=== PATIENT | female | born 1960 | race Caucasian/White ===

== ENCOUNTER 2023-10-01 16:10 | Emergency (ER) | payer OTHER, SELFPAY ==
[2023-10-01 16:10] VITALS: BMI 28.7
[2023-10-01 16:14] VITALS: BP 158/95
[2023-10-01 16:32] LABS: % Basophils 0.5 % (0-2); % Eosinophils 0.6 % (0-6); % Immature Granulocytes 0.3 % (0-0.5); % Lymphocytes 14.5 % (20.5-51.1); % Monocytes 7.4 % (1.7-9.3); % Neutrophils 76.7 % (42.2-75.2); Absolute Basophils 0.1 10^3/uL (0-0.2); Absolute Eosinophils 0.1 10^3/uL (0-0.7); Absolute Lymphocytes 1.4 10^3/uL (1.2-3.4); Absolute Monocytes 0.7 10^3/uL (0.1-0.6); Absolute Neutrophils 7.3 10^3/uL (1.4-6.5); Hematocrit 42.2 % (37.0-47.0); Hemoglobin 14.9 g/dL (12.0-16.0); Mean Corp Hgb Conc. 35.3 g/dL (33.0-37.0); Mean Corpuscular Hgb 30.4 pg (27.0-31.0); Mean Corpuscular Volume 86.1 fL (81.0-99.0); Mean Platelet Volume 9.5 fL (7.4-10.4); Nucleated Red Blood Cells % 0 %; Platelet Count 373 10^3/uL (130-400); Red Cell Dist. Width 11.2 % (11.5-14.5); White Blood Cell Count 9.5 10^3/uL (4.8-10.8)
[2023-10-01 16:44] LABS: ALT (SGPT) 25 U/L (0-35); AST (SGOT) 26 U/L (14-36); Albumin 4.3 g/dl (3.5-5.0); Alkaline Phosphatase 97 U/L (38-126); Blood Urea Nitrogen 12 mg/dl (7-17); Calcium 9.5 mg/dl (8.4-10.2); Carbon Dioxide 24 mmol/L (22-30); Chloride 104 mmol/L (98-107); Glucose 110 mg/dl (70-99); Potassium 3.9 mmol/L (3.5-5.1); Sodium 138 mmol/L (135-145); Total Bilirubin 0.4 mg/dl (0.2-1.3); Total Protein 6.9 g/dl (6.3-8.2); eGFR > 60.00
--- NOTE | 2023-10-01 19:19 | ED.GENMED ---
History of Present Illness
General
Chief Complaint: Fatigue
Source: patient and records
Exam Limitations: none
Time Seen by Provider: 10/01/23 19:03
Nursing documentation reviewed up to this point in time: agreed with
Travel History
Have you had any contact with someone who has COVID-19?: Yes
Comment:
Do you have any symptoms of coronavirus? Fever > 100 degrees, chills, cough, shortness of breath, sore throat, loss of taste or smell, muscle aches, or headache?: Yes
Symptoms:: bodyaches
History of Present Illness
History of Present Illness:
Patient is a 62-year-old female who presents to the emergency department complaining of feeling feverish, head congestion with shortness of breath and feeling as though she cannot take a deep breath as well as being dehydrated with myalgias greatest
in the lower extremities and decreased appetite. Patient has not been taking much by mouth and therefore feels dehydrated. Patient denies coughing. Patient tested positive for COVID on September 21. Patient finished Paxlovid on the . Patient
then tested negative on the , and . However today the patient tested positive again. 1 to 2 days ago the patient began to have symptoms again. Patient has been feeling well for 2 to 3 days before the relapse of symptoms.
Past History
Past History
ED Past Medical History: GERD, HTN, Psychiatric (Anxiety), Other (IBS) and Other (Extra-axial 1.7 cm Meningioma noted on CAT scan July 2016)
ED Past Surgical History: Tonsilectomy and Other (tubal ligation, uterine ablation; breast biopsy)
Social History
Tobacco: Non-smoker
Alcohol: Occasional
Drug: None
Personal:
Living: with family
Employment: Employed
Family History
Family History: Other (Noncontributory)
Review of Systems
Review of Systems
All Other Systems: ROS reviewed and negative except as documented in HPI and ROS
Constitutional: Reports fever, fatigue and chills
EENT: Reports runny nose
Respiratory: Reports trouble breathing; Denies cough
Cardiac: Reports no symptoms
ABD/GI: Reports nausea and anorexia; Denies abdominal pain, vomiting or diarrhea
: Reports no symptoms
Musculoskeletal: Reports muscle pain; Denies edema
Skin: Reports no symptoms
Neurological: Reports no symptoms
Hematologic/Lymphatic: Reports no symptoms
Phy Exam
Physical Exam
Physical Exam:
Physical Exam
General: moderate distress, alert and appropriate, well nourished, dry mucous membranes
HENT: Normocephalic, supple with no lymphadenopathy, no thyromegaly
Eyes: Clear sclera, conjuctiva without injection
Heart: Regular rhythm and rate. No S3, S4. No murmur. No NVD
Lungs: No respiratory distress, no stridor, lung sounds clear and equal bilaterally
Abdomen: Soft, nontender, no organomegaly, no CVA tenderness, BS good
Neuro: Alert and oriented x 3, CN II - XII intact, no motor focality, no cerebellar dysfunction
Skin: no rash
Psychiatric: well kept. interactive and cooperative
Extremities: No edema, cyanosis, tenderness, Good and equal peripheral pulses.
Course
Orders/Labs/Results
Orders:
Orders
10/01/23 16:24
Complete Blood Count/With Diff Urgent
Comprehensive Metabolic Panel Urgent
10/01/23 19:17
0.9% Sodium Chloride 1000 ml [Nss] 1,000 ml IV BOLUS
Acetaminophen [Tylenol] 1,000 mg PO NOW STA
Dexamethasone Sod Phosphate [Decadron] 10 mg IV NOW STA
HYDROmorphone [Dilaudid] 1 mg IV NOW STA
Ipratropium/Albuterol Sulfate [Duoneb] 3 ml INH R NOW STA
Ondansetron Injectable [Zofran] 4 mg IV NOW STA
10/01/23 20:35
Ondansetron Injectable [Zofran] 4 mg .ROUTE .STK-MED ONE
10/01/23 20:37
Ondansetron Injectable [Zofran] 4 mg IV NOW STA
10/01/23 21:11
Diphenhydramine [Benadryl] 12.5 mg IV NOW STA
Prochlorperazine [Compazine] 5 mg IV NOW STA
Abnormal Lab Results
10/01/23
16:24
RDW 11.2 L %
(11.5-14.5)
Absolute Neuts (auto) 7.3 H 10^3/uL
(1.4-6.5)
Absolute Monos (auto) 0.7 H 10^3/uL
(0.1-0.6)
Neutrophils % 76.7 H %
(42.2-75.2)
Lymphocytes % 14.5 L %
(20.5-51.1)
Glucose 110 H mg/dl
(70-99)
10/01/23 16:24
10/01/23 16:24
Vital Signs
Initial and Last Documented VS:
Initial Vital Signs
Temp Pulse Resp BP Pulse Ox
99.1 F 109 16 158/95 98
10/01/23 16:14 10/01/23 16:14 10/01/23 16:14 10/01/23 16:14 10/01/23 16:14
Last Documented Vital Signs
Temp Pulse Resp BP Pulse Ox
99.2 F 109 16 117/59 93
10/01/23 20:39 10/01/23 16:14 10/01/23 16:14 10/01/23 22:00 10/01/23 22:15
*Pulse Oximetry
Patient hypoxic: no
*Critical Care Note
Total Time (30-74mins, 75-104mins- exclusive of procedures): Not Applicable
Update Note
Update Note:
Patient feeling much better but did not tolerate the Dilaudid very well. Will discharge the patient on Zofran and prednisone. Patient has less myalgias and less weak. Appears to be recurrent COVID with dehydration.
ED Attending Note
-
Portions of this chart may have been created with voice recognition software.� Occasional wrong word or��sound alike� substitutions may have occurred due to the inherent limitations of voice recognition software.
Discharge Plan
Departure
Patient Disposition: Home (Routine Discharge)
Date of Disposition: 10/01/23
Time of Disposition: 22:45
Patient with high blood pressure during this ER visit?: No
Condition: Good
Covid-19: Not Applicable
Discharge Problem:
Recurrent COVID
Instructions: Dehydration, Adult (DC), COVID-19 (DC), Long COVID
Prescriptions:
New
prednisone 20 mg tablet
20 mg PO BID Qty: 10 0RF
ondansetron 8 mg tablet,disintegrating
8 mg PO TID PRN (Reason: nausea and vomiting) Qty: 20 0RF
No Action
lorazepam 0.5 MG tablet
0.5 mg PO Q6HPRN PRN (Reason: anxiety) Qty: 12 0RF
ascorbic acid (vitamin C) 1,000 mg Tablet
1,000 mg PO DAILY
rabeprazole [AcipHex] 20 mg Tablet,Delayed Release (Dr/Ec)
20 mg PO DAILY
losartan 25 mg Tablet
25 mg PO DAILY
metoprolol succinate 25 mg Tablet Extended Release 24 Hr
25 mg PO DAILY
Women's Multivitamin
1 tab PO DAILY
alprazolam [Xanax] 0.25 mg tablet
0.25 mg PO TID PRN (Reason: anxiety) Qty: 7 0RF
prednisone 50 mg Tablet
50 mg PO DAILY Qty: 4 0RF
ketorolac 10 mg tablet
10 mg PO Q8H Qty: 10 0RF
Referrals:
Gi,Kenna, PA-C [Family Provider] - Follow up in 5-7 days
Activity Restrictions/Additional Instructions:
Make sure to drink plenty of fluids. You may use acetaminophen 650 mg to 1000 mg every 6 hours for discomfort and fever
Interventions
Interventions:
*Risk Screen - Suicide Last Done: 10/01/23 22:21
*General Assessment Last Done: 10/01/23 22:21
ED- Fall Risk Assessment Last Done: 10/01/23 22:21
*ED COVID-19 Vaccine History Last Done: 10/01/23 16:14
[2023-10-01 19:44] VITALS: BP 151/91
[2023-10-01] MEDS: TYLENOL 1000 MG PO (19:52)
[2023-10-01] MEDS: DILAUDID 1 MG IV (19:52)
[2023-10-01] MEDS: DECADRON 10 MG IV (19:52)
[2023-10-01] MEDS: ZOFRAN 4 MG IV ×2 (19:53→20:37)
[2023-10-01] MEDS: NSS 1000 IV (19:53)
[2023-10-01] MEDS: DUONEB 3 ML INH (19:53)
[2023-10-01 20:00] VITALS: BP 140/80
[2023-10-01 21:00] VITALS: BP 130/86
[2023-10-01] MEDS: BENADRYL 12.5 MG IV (21:19)
[2023-10-01] MEDS: COMPAZINE 5 MG IV (21:20)
[2023-10-01 22:00] VITALS: BP 117/59
== END 2023-10-01 22:58 | disposition home or self-care (01) ==
LOC: EMR 16:10
PROVIDERS: Emergency Medicine; EMERGENCY PHYSICIAN Emergency Medicine; FAMILY PHYSICIAN Physician Assistant Medical
DX: U07.1 COVID-19 (principal)
CPT/HCPCS: 99284; 96374; 96375 ×4; 96361; 94640; 96376; 80053; 85025

== ENCOUNTER 2023-10-05 14:02 | Emergency (ER) | payer OTHER, SELFPAY ==
[2023-10-05 14:26] VITALS: BP 156/90
[2023-10-05 15:11] LABS: % Basophils 0.6 % (0-2); % Eosinophils 0.8 % (0-6); % Immature Granulocytes 0.6 % (0-0.5); % Monocytes 9.9 % (1.7-9.3); % Neutrophils 48.1 % (42.2-75.2); Absolute Eosinophils 0.1 10^3/uL (0-0.7); Absolute Lymphocytes 2.9 10^3/uL (1.2-3.4); Absolute Monocytes 0.7 10^3/uL (0.1-0.6); Absolute Neutrophils 3.5 10^3/uL (1.4-6.5); Hematocrit 40.9 % (37.0-47.0); Hemoglobin 14.4 g/dL (12.0-16.0); Mean Corp Hgb Conc. 35.2 g/dL (33.0-37.0); Mean Corpuscular Hgb 29.4 pg (27.0-31.0); Mean Corpuscular Volume 83.6 fL (81.0-99.0); Mean Platelet Volume 10.1 fL (7.4-10.4); Nucleated Red Blood Cells % 0 %; Platelet Count 314 10^3/uL (130-400); Red Blood Cell Count 4.89 10^6/uL (4.20-5.40); Red Cell Dist. Width 11.6 % (11.5-14.5); White Blood Cell Count 7.2 10^3/uL (4.8-10.8)
[2023-10-05 15:24] LABS: ALT (SGPT) 23 U/L (0-35); AST (SGOT) 27 U/L (14-36); Albumin 4.2 g/dl (3.5-5.0); Alkaline Phosphatase 82 U/L (38-126); Blood Urea Nitrogen 17 mg/dl (7-17); Calcium 9.8 mg/dl (8.4-10.2); Carbon Dioxide 25 mmol/L (22-30); Chloride 104 mmol/L (98-107); Glucose 99 mg/dl (70-99); Sodium 139 mmol/L (135-145); Total Bilirubin 0.5 mg/dl (0.2-1.3); Total Protein 6.9 g/dl (6.3-8.2); eGFR > 60.00
[2023-10-05 15:26] LABS: Troponin I < 0.012 ng/ml
--- NOTE | 2023-10-05 15:39 | ED.GENMED ---
History of Present Illness
General
Chief Complaint: Chest Pain
Source: patient
Exam Limitations: none
Time Seen by Provider: 10/05/23 15:39
Travel History
Have you had any contact with someone who has COVID-19?: Yes
Comment: self
Do you have any symptoms of coronavirus? Fever > 100 degrees, chills, cough, shortness of breath, sore throat, loss of taste or smell, muscle aches, or headache?: Yes
Symptoms:: cough
History of Present Illness
History of Present Illness:
60-year-old female diagnosed with COVID September 21 was on Paxlovid with relatively minimal symptoms. However symptoms progressed 3 to 4 days after stopping Paxlovid. Most of the symptoms have improved since then however this morning at about 530 she
developed a chest tightness with some shortness of breath at 5:30 in the morning. The symptoms have been persistent since that time. No exertional component. No new cough hemoptysis fever etc.
Past History
Past History
ED Past Medical History: GERD, HTN, Psychiatric (Anxiety), Other (IBS) and Other (Extra-axial 1.7 cm Meningioma noted on CAT scan July 2016)
ED Past Surgical History: Tonsilectomy and Other (tubal ligation, uterine ablation; breast biopsy)
Social History
Tobacco: Non-smoker
Alcohol: Occasional
Drug: None
Personal:
Living: with family
Employment: Employed
Family History
Family History: Other (Noncontributory)
Review of Systems
Review of Systems
All Other Systems: Not applicable
Respiratory: Reports cough; Denies hemoptysis
Cardiac: Denies syncope
Phy Exam
Physical Exam
Physical Exam:
GENERAL: Alert and oriented in no apparent distress
EYE: Orbits normal.
NECK: Supple
CARDIAC: Regular rate and rhythm without any obvious murmurs.
LUNGS: Clear breath sounds,normal
ABDOMEN: Soft, without focal tenderness or distention
NEUROLOGICAL: Alert and oriented , grossly non-focal
SKIN: Warm and dry, no rash or lesion, no discoloration, skin intact.
MUSCULOSKELETAL: No edema,no deformity.Good color
PSYCH: Normal and appropriate interaction.
Scores
Heart Score for Chest Pain Patients
STEMI patient?: Not applicable
Course
Orders/Labs/Results
Orders:
Orders
10/05/23 14:32
EKG [Electrocardiogram (*1)] Urgent
Reason for Study: Chest Pain
10/05/23 14:33
EKG- Treatment ONCE
10/05/23 14:49
CMP [Comprehensive Metabolic Panel] Urgent
Complete Blood Count/With Diff Urgent
Troponin I Urgent
10/05/23 15:49
CT Chest Pe Study Urgent
Comment:
Reason For Exam: The chest pain COVID-positive short of breath eugene
10/05/23 16:11
0.9% Sodium Chloride 500 ml [Nss] 500 ml IV BOLUS
Abnormal Lab Results
10/05/23
14:49
Absolute Monos (auto) 0.7 H 10^3/uL
(0.1-0.6)
Immature Gran % 0.6 H %
(0-0.5)
Monocytes % 9.9 H %
(1.7-9.3)
10/05/23 14:49
10/05/23 14:49
Vital Signs
Initial and Last Documented VS:
Initial Vital Signs
Temp Pulse Resp BP Pulse Ox
99.0 F 89 18 156/90 98
10/05/23 14:26 10/05/23 14:26 10/05/23 14:26 10/05/23 14:26 10/05/23 14:26
Last Documented Vital Signs
Temp Pulse Resp BP Pulse Ox
99.0 F 89 18 143/67 98
10/05/23 14:26 10/05/23 16:00 10/05/23 16:00 10/05/23 16:00 10/05/23 16:00
MDM/Problems Addressed
Differential Diagnosis Includes:
Continuous nonexertional symptoms for about 10 hours. EKG and troponin perfectly normal. No indication for repeat cardiac testing. However with delayed shortness of breath and chest tightness CT scan will be done to rule out pulmonary emboli.
Clinically nontoxic and stable
*Radiology
Radiology exam reviewed: radiology read reviewed (neg)
*Pulse Oximetry
Patient hypoxic: no
*EKG
Interpreted by ED Provider?: Yes
Interpretation: normal
Comparison EKG: no changes
Heart Rate: 84
Rate: normal
Rhythm: sinus
[place]: normal axis
Interval: normal interval
QRS Pattern: normal QRS
Ischemia: no ischemia
*Critical Care Note
Total Time (30-74mins, 75-104mins- exclusive of procedures): Not Applicable
Update Note
Update Note:
Patient medically stable. Prolonged symptoms about 10 hours continuous with normal EKG and troponin. No PE. No pneumonia. Discharged to follow-up
ED Attending Note
-
Portions of this chart may have been created with voice recognition software.� Occasional wrong word or��sound alike� substitutions may have occurred due to the inherent limitations of voice recognition software.
Discharge Plan
Departure
Patient Disposition: Home (Routine Discharge)
Date of Disposition: 10/05/23
Time of Disposition: 18:02
Patient with high blood pressure during this ER visit?: Yes
Discharge Problem:
Anterior chest pain, COVID infection
Instructions: Chest Pain (DC), COVID-19 (DC), BLOOD PRESSURE
Prescriptions:
No Action
lorazepam 0.5 MG tablet
0.5 mg PO Q6HPRN PRN (Reason: anxiety) Qty: 12 0RF
ascorbic acid (vitamin C) 1,000 mg Tablet
1,000 mg PO DAILY
rabeprazole [AcipHex] 20 mg Tablet,Delayed Release (Dr/Ec)
20 mg PO DAILY
losartan 25 mg Tablet
25 mg PO DAILY
metoprolol succinate 25 mg Tablet Extended Release 24 Hr
25 mg PO DAILY
Women's Multivitamin
1 tab PO DAILY
alprazolam [Xanax] 0.25 mg tablet
0.25 mg PO TID PRN (Reason: anxiety) Qty: 7 0RF
prednisone 50 mg Tablet
50 mg PO DAILY Qty: 4 0RF
ketorolac 10 mg tablet
10 mg PO Q8H Qty: 10 0RF
prednisone 20 mg tablet
20 mg PO BID Qty: 10 0RF
ondansetron 8 mg tablet,disintegrating
8 mg PO TID PRN (Reason: nausea and vomiting) Qty: 20 0RF
Referrals:
UNKNOWN - PT DOES,NOT KNOW [Unknown Provider] - Follow up in 2-3 days
Interventions
Interventions:
*Risk Screen - Suicide Last Done: 10/05/23 14:26
*General Assessment Last Done: 10/05/23 15:51
*Neglect/Abuse Screening Last Done: 10/05/23 14:26
ED- Fall Risk Assessment Last Done: 10/05/23 15:51
*ED COVID-19 Vaccine History Last Done: 10/05/23 14:26
ED- Cardiac Assessment Last Done: 10/05/23 15:51
[2023-10-05 15:49] VITALS: BP 141/70
[2023-10-05 15:51] VITALS: BMI 30.4
[2023-10-05 16:00] VITALS: BP 143/67
[2023-10-05] MEDS: NSS 500 IV (16:11)
== END 2023-10-05 18:15 | disposition home or self-care (01) ==
LOC: EMR 14:02
PROVIDERS: Emergency Medicine; EMERGENCY PHYSICIAN Emergency Medicine; FAMILY PHYSICIAN Physician Assistant Medical
DX: R07.89 Other chest pain (principal); U07.1 COVID-19; I10 Essential (primary) hypertension
CPT/HCPCS: 99285; 96360; 71275; 80053; 84484; 85025; 93005; Q9967

== ENCOUNTER → 2023-10-17 06:46 | Outpatient (REF) | payer OTHER, SELFPAY | LOC: WDC 06:46 | PROVIDERS: ATTENDING PHYSICIAN Physician Assistant Medical | DX: Z12.31 Encounter for screening mammogram for malignant neoplasm of breast (principal) | CPT/HCPCS: 77063; 77067 ==

== ENCOUNTER → 2023-10-31 07:03 | Outpatient (REF) | payer OTHER, SELFPAY ==
[2023-10-31 07:46] LABS: % Basophils 0.5 % (0-2); % Eosinophils 1.3 % (0-6); % Immature Granulocytes 0.5 % (0-0.5); % Lymphocytes 21.2 % (20.5-51.1); % Monocytes 6.9 % (1.7-9.3); % Neutrophils 69.6 % (42.2-75.2); Absolute Eosinophils 0.1 10^3/uL (0-0.7); Absolute Lymphocytes 1.6 10^3/uL (1.2-3.4); Absolute Monocytes 0.5 10^3/uL (0.1-0.6); Absolute Neutrophils 5.2 10^3/uL (1.4-6.5); Hematocrit 40.8 % (37.0-47.0); Mean Corp Hgb Conc. 34.3 g/dL (33.0-37.0); Mean Corpuscular Hgb 29.4 pg (27.0-31.0); Mean Corpuscular Volume 85.5 fL (81.0-99.0); Mean Platelet Volume 10.4 fL (7.4-10.4); Nucleated Red Blood Cells % 0 %; Platelet Count 252 10^3/uL (130-400); Red Blood Cell Count 4.77 10^6/uL (4.20-5.40); Red Cell Dist. Width 11.9 % (11.5-14.5); White Blood Cell Count 7.4 10^3/uL (4.8-10.8)
[2023-10-31 08:04] LABS: ALT (SGPT) 38 U/L (0-35); AST (SGOT) 32 U/L (14-36); Albumin 4.3 g/dl (3.5-5.0); Alkaline Phosphatase 108 U/L (38-126); Direct Bilirubin 0.3 mg/dl (0.0-0.4); Total Bilirubin 0.7 mg/dl (0.2-1.3)
== END ==
LOC: RAD 07:03
PROVIDERS: ATTENDING PHYSICIAN Internal Medicine Gastroenterology; FAMILY PHYSICIAN Physician Assistant Medical
DX: R10.11 Right upper quadrant pain (principal); K76.0 Fatty (change of) liver, not elsewhere classified
CPT/HCPCS: 36415; 76700; 80076; 85025

== ENCOUNTER → 2023-12-07 07:25 | Outpatient (REF) | payer OTHER, SELFPAY | LOC: MRI 3T 07:25 | PROVIDERS: ATTENDING PHYSICIAN Internal Medicine Gastroenterology; FAMILY PHYSICIAN Physician Assistant Medical | DX: K83.8 Other specified diseases of biliary tract (principal) | CPT/HCPCS: 74183; A9575 ==

== ENCOUNTER 2024-01-05 07:19 | Emergency (ER) | payer OTHER, SELFPAY ==
[2024-01-05 07:30] VITALS: BP 156/89
[2024-01-05 07:41] VITALS: BP 147/72
--- NOTE | 2024-01-05 07:56 | ED.GENMED ---
History of Present Illness
General
Chief Complaint: Chest Pain
Source: patient
Exam Limitations: none
Time Seen by Provider: 01/05/24 07:38
Nursing documentation reviewed up to this point in time: agreed with
Travel History
Have you had any contact with someone who has COVID-19?: No
Do you have any symptoms of coronavirus? Fever > 100 degrees, chills, cough, shortness of breath, sore throat, loss of taste or smell, muscle aches, or headache?: No
History of Present Illness
History of Present Illness:
Patient is a 63-year-old female with history of hypertension hyperlipidemia reflux anxiety' valve issues' presents to the ER for evaluation. Patient reports around 3:30 AM she noticed midsternal chest pressure. She is not sure if she was up for
the pain woke her up. She reports it is still there. She is unable to tell if this is her anxiety or reflux. She is followed by Dr. Johnson of Cardiology for 'valve disease .' She does have Ativan at home and does not want to take it. She
denies any radiation denies any nausea vomiting associated shortness of breath.
Stress echo reviewed from January 2023 shows normal LV size normal LV ejection fraction mild to moderate aortic regurgitation mild tricuspid regurg.
In review of records, pt was seen here in Jun 2023 and September 2023 for CP had neg ER work up.
Past History
Past History
ED Past Medical History: GERD, HTN, Psychiatric (Anxiety), Other (IBS) and Other (Extra-axial 1.7 cm Meningioma noted on CAT scan July 2016)
ED Past Surgical History: Tonsilectomy and Other (tubal ligation, uterine ablation; breast biopsy)
Social History
Tobacco: Non-smoker
Alcohol: Occasional
Drug: None
Personal:
Living: with family
Employment: Employed
Family History
Family History: Other (Noncontributory)
Review of Systems
Review of Systems
Allergies reviewed?: Yes
All Other Systems: ROS reviewed and negative except as documented in HPI and ROS
Constitutional: Reports no symptoms; Denies fever, fatigue or chills
Respiratory: Reports no symptoms
Cardiac: Reports chest pain
ABD/GI: Reports no symptoms; Denies nausea or vomiting
: Reports no symptoms
Musculoskeletal: Reports no symptoms
Skin: Reports no symptoms
Neurological: Reports no symptoms
Psychiatric: Reports no symptoms
Phy Exam
General Physical Exam
General Presentation: no apparent distress
General age: appears stated age
General Skin: warm and dry
General Habitus: normal
General Mental: alert
General Hydration: appears well hydrated
Cardiovascular Exam
Cardiovascular Exam: regular rate/rhythm, no murmur and normal peripheral pulses
Pulmonary Exam
Pulmonary Exam: lungs clear and no respiratory distress
Neurological Exam
Neurological Exam: alert and oriented x3
Musculoskeletal Exam
Musculoskeletal Exam: full ROM
Skin Exam
Skin Exam: normal color and warm/dry
Psychiatric Exam
Psychiatric Exam: normal mood/affect
Scores
Heart Score for Chest Pain Patients
STEMI patient?: Not applicable
Course
Orders/Labs/Results
Orders:
Orders
01/05/24 07:30
Electrocardiogram (*1) Urgent
Reason for Study: Chest Pain
EKG- Treatment ONCE
01/05/24 07:44
Cardiac Monitoring- Treatment ONCE
CR Chest - 2 Views Urgent
Comment:
Reason For Exam: cp
01/05/24 07:58
Complete Blood Count/With Diff Urgent
01/05/24 08:19
Soft Tissue, Neck [CR Soft Tissue Neck ] Urgent
Comment:
Reason For Exam: sob
01/05/24 08:45
Comprehensive Metabolic Panel Urgent
Troponin I Urgent
01/05/24 09:37
EKG- Treatment ONCE
01/05/24 11:45
Electrocardiogram (*1) Stat
Reason for Study: Other
Other Reason for Exam: chest pain
01/05/24 11:50
Troponin I Urgent
Abnormal Lab Results
01/05/24
08:45
Glucose 100 H mg/dl
(70-99)
Calcium 10.4 H mg/dl
(8.4-10.2)
AST 40 H U/L
(14-36)
ALT 57 H U/L
(0-35)
01/05/24 07:58
01/05/24 08:45
Vital Signs
Initial and Last Documented VS:
Initial Vital Signs
Temp Pulse Resp BP Pulse Ox
98.1 F 73 16 156/89 98
01/05/24 07:30 01/05/24 07:30 01/05/24 07:30 01/05/24 07:30 01/05/24 07:30
Last Documented Vital Signs
Temp Pulse Resp BP Pulse Ox
98.1 F 78 15 141/74 98
01/05/24 07:30 01/05/24 12:15 01/05/24 12:15 01/05/24 13:41 01/05/24 13:41
MDM/Problems Addressed
Differential Diagnosis Includes:
not limited to [place], CAD. Anxiety
MDM/Problems Addressed:
Patient is a 63-year-old female with hypertension hyperlipidemia followed by Dr. Johnson of cardiology presents with chest pressure. This occurred around 330 this morning. She felt that it was anxiety but did not want to take her Ativan in case
it was not. She presented to the awake alert no acute distress patient was monitored here 2 negative cardiac troponins with neg chest x-ray no acute findings on EKG. Stable for discharge with outpatient follow-up cardiology
*Pulse Oximetry
Patient hypoxic: no
*EKG
Interpreted by ED Provider?: Yes
Interpretation: normal
Heart Rate: 68
Rhythm: sinus
Ischemia: no ischemia
*Critical Care Note
Total Time (30-74mins, 75-104mins- exclusive of procedures): Not Applicable
ED Attending Note
-
Portions of this chart may have been created with voice recognition software.� Occasional wrong word or��sound alike� substitutions may have occurred due to the inherent limitations of voice recognition software.
Discharge Plan
Departure
Patient Disposition: Home (Routine Discharge)
Date of Disposition: 01/05/24
Time of Disposition: 13:38
Patient with high blood pressure during this ER visit?: Yes
Condition: Fair
Covid-19: Not Applicable
Discharge Problem:
Chest pain
Instructions: Chest Pain DCA Follow Up
Prescriptions:
No Action
lorazepam 0.5 MG tablet
0.5 mg PO Q6HPRN PRN (Reason: anxiety) Qty: 12 0RF
ascorbic acid (vitamin C) 1,000 mg Tablet
1,000 mg PO DAILY
rabeprazole [AcipHex] 20 mg Tablet,Delayed Release (Dr/Ec)
20 mg PO DAILY
losartan 25 mg Tablet
25 mg PO DAILY
metoprolol succinate 25 mg Tablet Extended Release 24 Hr
25 mg PO DAILY
Women's Multivitamin
1 tab PO DAILY
alprazolam [Xanax] 0.25 mg tablet
0.25 mg PO TID PRN (Reason: anxiety) Qty: 7 0RF
prednisone 50 mg Tablet
50 mg PO DAILY Qty: 4 0RF
ketorolac 10 mg tablet
10 mg PO Q8H Qty: 10 0RF
prednisone 20 mg tablet
20 mg PO BID Qty: 10 0RF
ondansetron 8 mg tablet,disintegrating
8 mg PO TID PRN (Reason: nausea and vomiting) Qty: 20 0RF
Referrals:
Gi,Kenna, PA-C [Family Provider] -
Activity Restrictions/Additional Instructions:
Follow-up with cardiology as discussed return if any worsening of symptoms.
Interventions
Interventions:
*Risk Screen - Suicide Last Done: 01/05/24 08:48
*General Assessment Last Done: 01/05/24 08:48
*Neglect/Abuse Screening Last Done: 01/05/24 08:48
ED- Fall Risk Assessment Last Done: 01/05/24 08:48
*ED COVID-19 Vaccine History Last Done: 01/05/24 08:48
*Nursing Disposition Last Done: 01/05/24 13:41
ED- Cardiac Assessment Last Done: 01/05/24 08:14
Discharge Date and Time
Discharge Date/Time: 01/05/24 13:42
Print Language: MACANESE
[2024-01-05 08:09] LABS: % Basophils 0.5 % (0-2); % Eosinophils 1.5 % (0-6); % Immature Granulocytes 0.3 % (0-0.5); % Lymphocytes 22.3 % (20.5-51.1); % Neutrophils 68.4 % (42.2-75.2); Absolute Eosinophils 0.1 10^3/uL (0-0.7); Absolute Lymphocytes 1.7 10^3/uL (1.2-3.4); Absolute Monocytes 0.5 10^3/uL (0.1-0.6); Absolute Neutrophils 5.1 10^3/uL (1.4-6.5); Hemoglobin 14.3 g/dL (12.0-16.0); Mean Corp Hgb Conc. 34.9 g/dL (33.0-37.0); Mean Corpuscular Hgb 29.4 pg (27.0-31.0); Mean Corpuscular Volume 84.4 fL (81.0-99.0); Mean Platelet Volume 10.2 fL (7.4-10.4); Nucleated Red Blood Cells % 0 %; Platelet Count 286 10^3/uL (130-400); Red Blood Cell Count 4.86 10^6/uL (4.20-5.40); Red Cell Dist. Width 11.9 % (11.5-14.5); White Blood Cell Count 7.4 10^3/uL (4.8-10.8)
[2024-01-05 09:09] LABS: ALT (SGPT) 57 U/L (0-35); AST (SGOT) 40 U/L (14-36); Albumin 4.4 g/dl (3.5-5.0); Alkaline Phosphatase 121 U/L (38-126); Blood Urea Nitrogen 16 mg/dl (7-17); Calcium 10.4 mg/dl (8.4-10.2); Carbon Dioxide 25 mmol/L (22-30); Chloride 107 mmol/L (98-107); Glucose 100 mg/dl (70-99); Potassium 4.5 mmol/L (3.5-5.1); Sodium 141 mmol/L (135-145); Total Bilirubin 0.8 mg/dl (0.2-1.3); eGFR > 60.00
[2024-01-05 09:21] LABS: Troponin I < 0.012 ng/ml
[2024-01-05 10:00] VITALS: BP 149/81
[2024-01-05 11:00] VITALS: BP 140/65
[2024-01-05 12:26] LABS: Troponin I < 0.012 ng/ml
[2024-01-05 13:41] VITALS: BP 141/74
== END 2024-01-05 13:42 | disposition home or self-care (01) ==
LOC: EMR 07:19
PROVIDERS: Nurse Practitioner; EMERGENCY PHYSICIAN Emergency Medicine; FAMILY PHYSICIAN Physician Assistant Medical
DX: R07.89 Other chest pain (principal); I10 Essential (primary) hypertension; E78.00 Pure hypercholesterolemia, unspecified; F41.9 Anxiety disorder, unspecified; K58.9 Irritable bowel syndrome, unspecified
CPT/HCPCS: 99283; 70360; 71046; 80053; 84484; 85025; 93005

== ENCOUNTER 2024-01-18 05:52 | Emergency (ER) | payer OTHER, SELFPAY ==
[2024-01-18 05:56] VITALS: BP 160/89
[2024-01-18 06:35] VITALS: BP 151/75
[2024-01-18 06:40] VITALS: BMI 30.8
--- NOTE | 2024-01-18 06:41 | ED.GENMED ---
History of Present Illness
General
Chief Complaint: Abdominal Pain
Source: patient
Exam Limitations: none
Time Seen by Provider: 01/18/24 06:22
History of Present Illness
History of Present Illness:
See MDM
Past History
Past History
ED Past Medical History: GERD, HTN, Psychiatric (Anxiety), Other (IBS) and Other (Extra-axial 1.7 cm Meningioma noted on CAT scan July 2016)
ED Past Surgical History: Tonsilectomy and Other (tubal ligation, uterine ablation; breast biopsy)
Social History
Tobacco: Non-smoker
Alcohol: Occasional
Drug: None
Personal:
Living: with family
Employment: Employed
Family History
Family History: Other (Noncontributory)
Phy Exam
Physical Exam
Physical Exam:
See MDM
Course
Orders/Labs/Results
Orders:
Orders
01/18/24 06:01
IV Insert/Care/Rem.- Treatment PRN
01/18/24 06:02
Electrocardiogram (*1) Urgent
Reason for Study: Abdominal Pain
EKG- Treatment ONCE
01/18/24 06:32
Complete Blood Count/With Diff Urgent
Comprehensive Metabolic Panel Urgent
Lipase Urgent
01/18/24 06:39
0.9% Sodium Chloride 1000 ml [Nss] 1,000 ml IV BOLUS
Ondansetron Injectable [Zofran] 4 mg IV NOW STA
Abnormal Lab Results
01/18/24
06:32
Chloride 109 H mmol/L
(98-107)
Glucose 105 H mg/dl
(70-99)
Calcium 10.3 H mg/dl
(8.4-10.2)
01/18/24 06:32
01/18/24 06:32
Vital Signs
Initial and Last Documented VS:
Initial Vital Signs
Temp Pulse Resp BP Pulse Ox
98.6 F 80 18 160/89 99
01/18/24 05:56 01/18/24 05:56 01/18/24 05:56 01/18/24 05:56 01/18/24 05:56
Last Documented Vital Signs
Temp Pulse Resp BP Pulse Ox
98.6 F 80 18 140/70 99
01/18/24 05:56 01/18/24 05:56 01/18/24 05:56 01/18/24 07:00 01/18/24 07:55
MDM/Problems Addressed
Differential Diagnosis Includes:
HPI and MDM Narrative:
63-year-old female presenting with abdominal discomfort and vomiting. Patient developed nausea and vomiting of the past few hours. This occurred several times. On her last time, it was blood tinged. She has an underlying diagnosis of anxiety and
reflux. She is on omeprazole. She took her omeprazole and Tums with minimal relief. Patient does acknowledge that she has been stressed and anxious recently.
On exam, she is well-appearing nontoxic. We discussed likely Anh-Anand tear. Given the mild epigastric discomfort, will obtain basic blood work and lipase. Screening EKG negative.
Physical exam
General: Well appearing and non-toxic
HEENT: protecting airway
Neck: appears supple
CV: No evidence of cyanosis
Resp: No accessory muscle use
Abd: Non-distended. Mild epigastric discomfort. No right upper quadrant tenderness
Extremities: No deformities
Neuro: alert
Psych: Normal affect
Skin: Intact
Problems Addressed including Acute and Chronic Conditions affecting care:
1. Blood-tinged vomit
Acuity: acute
Prognosis: stable
Details: Likely in the setting of Anh-Anand tear. Will obtain basic blood work. Patient is already on PPI
Updates
Patient feeling better on reassessment after IV fluids and Zofran. She feels comfortable going home
Differential Diagnosis (but not limited to): Peptic ulcer disease, reflux, anxiety, Anh-Anand tear
Testing considered: CT abdomen/pelvis but no significant tenderness appreciated
Drug therapy (if applicable): OTC meds, please see d/c instruction regarding Rx drugs
Amount and/or Complexity of Data Reviewed
Clinical info obtained from: Patient
External data reviewed: N/A
Labs I independently reviewed (but not limited to): Hgb normal
Radiology: N/A
Pulse Ox: not hypoxic
EKG independently reviewed: Sinus rhythm, normal axis, no STEMI
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
Critical Care: N/A
Risk of Complication:
Social Determinants of health: Good social support
Discussed with other providers: N/A
Escalation of Care includes Admit/Obs: After being observed in the Emergency Department, pt stable for discharge.
Occasional wrong word or 'sound a like' substitutions may have occurred due to the inherent limitations of voice recognition software. Read the chart carefully and recognize, using context, where substitutions have occurred.
*Critical Care Note
Total Time (30-74mins, 75-104mins- exclusive of procedures): Not Applicable
ED Attending Note
-
Portions of this chart may have been created with voice recognition software.� Occasional wrong word or��sound alike� substitutions may have occurred due to the inherent limitations of voice recognition software.
Discharge Plan
Departure
Patient Disposition: Home (Routine Discharge)
Date of Disposition: 01/18/24
Time of Disposition: 08:57
Patient with high blood pressure during this ER visit?: Yes
Discharge Problem:
Acid reflux
Instructions: BLOOD PRESSURE
Prescriptions:
New
ondansetron 4 mg Tablet,Disintegrating
4 mg PO BIDPRN PRN (Reason: nausea/vomiting) Qty: 10 0RF
No Action
lorazepam 0.5 MG tablet
0.5 mg PO Q6HPRN PRN (Reason: anxiety) Qty: 12 0RF
ascorbic acid (vitamin C) 1,000 mg Tablet
1,000 mg PO DAILY
rabeprazole [AcipHex] 20 mg Tablet,Delayed Release (Dr/Ec)
20 mg PO DAILY
losartan 25 mg Tablet
25 mg PO DAILY
metoprolol succinate 25 mg Tablet Extended Release 24 Hr
25 mg PO DAILY
Women's Multivitamin
1 tab PO DAILY
alprazolam [Xanax] 0.25 mg tablet
0.25 mg PO TID PRN (Reason: anxiety) Qty: 7 0RF
prednisone 50 mg Tablet
50 mg PO DAILY Qty: 4 0RF
ketorolac 10 mg tablet
10 mg PO Q8H Qty: 10 0RF
prednisone 20 mg tablet
20 mg PO BID Qty: 10 0RF
ondansetron 8 mg tablet,disintegrating
8 mg PO TID PRN (Reason: nausea and vomiting) Qty: 20 0RF
Referrals:
Kenna Angelo PA-C [Family Provider] -
Activity Restrictions/Additional Instructions:
Please return for any worsening symptoms.
You may return at any time if you have further concerns.
Please follow up with your doctor at the first available appointment, preferably this week.
Thank you for choosing [facility].
Interventions
Interventions:
*Risk Screen - Suicide Last Done: 01/18/24 06:42
*General Assessment Last Done: 01/18/24 06:42
*Neglect/Abuse Screening Last Done: 01/18/24 06:42
ED- Fall Risk Assessment Last Done: 01/18/24 06:42
*ED COVID-19 Vaccine History Last Done: 01/18/24 06:42
AI-Hfozcw-Mfigpfwdfx Assessment Last Done: 01/18/24 06:41
Discharge Date and Time
Print Language: KYRGYZ
[2024-01-18] MEDS: ZOFRAN 4 MG IV (06:50)
[2024-01-18] MEDS: NSS 1000 IV (06:51)
[2024-01-18 06:53] LABS: ALT (SGPT) 33 U/L (0-35); AST (SGOT) 33 U/L (14-36); Albumin 4.9 g/dl (3.5-5.0); Alkaline Phosphatase 120 U/L (38-126); Blood Urea Nitrogen 16 mg/dl (7-17); Calcium 10.3 mg/dl (8.4-10.2); Carbon Dioxide 23 mmol/L (22-30); Chloride 109 mmol/L (98-107); Estimated Creatinine Clearance 95 ml/min; Glucose 105 mg/dl (70-99); Lipase 141 U/L (23-300); Potassium 4.3 mmol/L (3.5-5.1); Sodium 141 mmol/L (135-145); Total Bilirubin 0.9 mg/dl (0.2-1.3); Total Protein 7.7 g/dl (6.3-8.2); eGFR > 60.00
[2024-01-18 06:55] LABS: % Basophils 0.7 % (0-2); % Eosinophils 0.9 % (0-6); % Immature Granulocytes 0.5 % (0-0.5); % Lymphocytes 26.7 % (20.5-51.1); % Monocytes 6.9 % (1.7-9.3); % Neutrophils 64.3 % (42.2-75.2); Absolute Eosinophils 0.1 10^3/uL (0-0.7); Absolute Lymphocytes 1.5 10^3/uL (1.2-3.4); Absolute Monocytes 0.4 10^3/uL (0.1-0.6); Absolute Neutrophils 3.6 10^3/uL (1.4-6.5); Hematocrit 44.3 % (37.0-47.0); Hemoglobin 15.7 g/dL (12.0-16.0); Mean Corp Hgb Conc. 35.4 g/dL (33.0-37.0); Mean Corpuscular Hgb 30.3 pg (27.0-31.0); Mean Corpuscular Volume 85.4 fL (81.0-99.0); Mean Platelet Volume 10.3 fL (7.4-10.4); Nucleated Red Blood Cells % 0 %; Platelet Count 326 10^3/uL (130-400); Red Blood Cell Count 5.19 10^6/uL (4.20-5.40); White Blood Cell Count 5.7 10^3/uL (4.8-10.8)
[2024-01-18 07:00] VITALS: BP 140/70
[2024-01-18 08:00] VITALS: BP 149/78
== END 2024-01-18 09:38 | disposition home or self-care (01) ==
LOC: EMR 05:52
PROVIDERS: EMERGENCY PHYSICIAN Student in an Organized Health Care Education/Training Program; FAMILY PHYSICIAN Physician Assistant Medical
DX: R10.9 Unspecified abdominal pain (principal); K21.9 Gastro-esophageal reflux disease without esophagitis
CPT/HCPCS: 99283; 96374; 96361; 80053; 83690; 85025; 93005

== ENCOUNTER 2024-01-19 02:51 | Emergency (ER) | payer OTHER, SELFPAY ==
[2024-01-19 03:05] VITALS: BP 169/89
[2024-01-19 03:21] VITALS: BMI 31.4
[2024-01-19 03:23] VITALS: BP 129/76
[2024-01-19 04:00] VITALS: BP 127/70
--- NOTE | 2024-01-19 04:51 | ED.GENMED ---
History of Present Illness
<MELISSA Rand - Last Filed: 01/19/24 05:12>
General
Chief Complaint: Headache
Source: patient
Exam Limitations: none
Time Seen by Provider: 01/19/24 04:29
Nursing documentation reviewed up to this point in time: agreed with
History of Present Illness
History of Present Illness:
63 year old female presenting for evaluation of occipital MUNIZ. Pt awoke at 0230 this morning with dull, 4/10 pain in her R occipital area. She has a history of migraines for which she takes Tylenol PRN. Pt has not taken any medications for her
current sx. Pt also reports that her anxiety triggers an increase in frequency of headaches. She has been anxious over the last week due to an upcoming flight, and endorses more headaches than usual during this time. She denies N/V, photophobia,
vision problems, dizziness, weakness, dysarthria, and syncope.
Past History
<MELISSA Rand - Last Filed: 01/19/24 05:12>
Past History
ED Past Medical History: GERD, HTN, Psychiatric (Anxiety), Other (IBS) and Other (Extra-axial 1.7 cm Meningioma noted on CAT scan July 2016)
ED Past Surgical History: Tonsilectomy and Other (tubal ligation, uterine ablation; breast biopsy)
Social History
Tobacco: Non-smoker
Alcohol: Occasional
Drug: None
Personal:
Living: with family
Employment: Employed
Family History
Family History: Other (Noncontributory)
Review of Systems
<MELISSA Rand - Last Filed: 01/19/24 05:12>
Review of Systems
Allergies reviewed?: Yes
Constitutional: Reports no symptoms
EENT: Reports no symptoms
Respiratory: Reports no symptoms
Cardiac: Reports no symptoms
ABD/GI: Reports no symptoms
Musculoskeletal: Reports muscle pain
Skin: Reports no symptoms
Neurological: Reports headache
Psychiatric: Reports anxiety
Phy Exam
<MELISSA Rand - Last Filed: 01/19/24 05:12>
General Physical Exam
General Presentation: well appearing
General age: appears stated age
General Skin: warm
General Habitus: normal
General Mental: alert
General Hydration: appears well hydrated
ENT Exam
ENT Exam: EOMI and normocephalic
Eye Exam
Eye Exam: PERRL and EOMI
Cardiovascular Exam
Cardiovascular Exam: regular rate/rhythm, no edema and no murmur
Pulmonary Exam
Pulmonary Exam: lungs clear and no respiratory distress
Neurological Exam
Neurological Exam: alert, oriented x3, no motor deficits and speech normal
Musculoskeletal Exam
Musculoskeletal Exam: neck pain and other (pain with right head rotation and right lateral bending)
Course
<MELISSA Rand - Last Filed: 01/19/24 05:12>
Orders/Labs/Results
Orders:
Orders
01/19/24 05:19
Ketorolac [Toradol] 30 mg IM NOW STA
01/19/24 05:20
Bedside Glucose- Treatment ONCE
Abnormal Lab Results
01/19/24
05:25
POC Glucose 107 H mg/dl
(70-99)
Vital Signs
Initial and Last Documented VS:
Initial Vital Signs
Temp Pulse Resp BP Pulse Ox
98.7 F 84 16 169/89 99
01/19/24 03:05 01/19/24 03:05 01/19/24 03:05 01/19/24 03:05 01/19/24 03:05
Last Documented Vital Signs
Temp Pulse Resp BP Pulse Ox
98.7 F 79 19 127/70 99
01/19/24 03:05 01/19/24 04:45 01/19/24 04:45 01/19/24 04:00 01/19/24 03:05
<Kita Forrester DO - Last Filed: 01/19/24 05:45>
Orders/Labs/Results
Orders:
Orders
01/19/24 05:19
Ketorolac [Toradol] 30 mg IM NOW STA
01/19/24 05:20
Bedside Glucose- Treatment ONCE
Abnormal Lab Results
01/19/24
05:25
POC Glucose 107 H mg/dl
(70-99)
Vital Signs
Initial and Last Documented VS:
Initial Vital Signs
Temp Pulse Resp BP Pulse Ox
98.7 F 84 16 169/89 99
01/19/24 03:05 01/19/24 03:05 01/19/24 03:05 01/19/24 03:05 01/19/24 03:05
Last Documented Vital Signs
Temp Pulse Resp BP Pulse Ox
98.7 F 79 19 127/70 99
01/19/24 03:05 01/19/24 04:45 01/19/24 04:45 01/19/24 04:00 01/19/24 03:05
<MELISSA Rand - Last Filed: 01/19/24 05:12>
MDM/Problems Addressed
Differential Diagnosis Includes:
Occipital MUNIZ, migraine, paracervical strain
<Kita Forrester DO - Last Filed: 01/19/24 05:45>
*Pulse Oximetry
Patient hypoxic: no
*Bale Piler Interpretation
Rate: normal
Interpretation: normal
Rhythm: sinus
*Critical Care Note
Total Time (30-74mins, 75-104mins- exclusive of procedures): Not Applicable
ED Attending Note
<MELISSA Rand - Last Filed: 01/19/24 05:12>
-
Portions of this chart may have been created with voice recognition software.� Occasional wrong word or��sound alike� substitutions may have occurred due to the inherent limitations of voice recognition software.
<Kita Forrester DO - Last Filed: 01/19/24 05:45>
ED Attending Note
Patient seen and examined by attending physician: Yes
I performed the substantive portion of visit, reviewed & personally made and approve the management plan that is documented in note by myself or MARIA T.: Yes
I performed a history and physical exam of patient and discussed management with resident, I reviewed resident's note and agree with documented findings and plan of care.: Yes
ED Attending Note:
This is a 63-year-old woman who has longstanding history of anxiety, maintained on as needed lorazepam. Follows with her PCP and had previously trialed Zoloft but noted increase in her headaches. Has history of migraine headaches with previous
unremarkable imaging. She also noted poor response with BuSpar and thus is maintained on just lorazepam as needed for anxiety.
She admits to significant increase in her anxieties and worries over the past several weeks contemplating upcoming air travel within the next day or 2. She admits that she does not like to fly.
She has been evaluated in this ED on several occasions for chest pain complaints, acid reflux, nausea including yesterday with multiple repeated unremarkable ED evaluations/cardiac evaluations.
She states chest pain, nausea has resolved but she has had difficulty sleeping over the past several nights and tonight with restless sleep she awoke with right posterior occipital headache as well as a sense of some palpitations. Headache is
similar to her previous headaches. She denies weakness nor numbness, no dizziness but does have history of frequent vertigo, none currently.
She also admits to chronic worry that she has diabetes despite unremarkable random blood sugars on each occasion in the ED and reports normal hemoglobin A1c in October.
GENERAL: 63-year-old woman appears her stated age, awake and alert, mildly anxious, easily communicative. Repeatedly apologetic.
EYE: pupils equal and reactive. Extraocular muscles intact. Anicteric
NECK: Supple, nontender, no meningismus, no significant adenopathy.
ENT: posterior pharynx is clear, oral mucosa is moist. TM clear b/l, nares patent.
CARDIAC: Regular rate and rhythm. no murmur.
LUNGS: Clear breath sounds bilaterally, no acute respiratory distress, no wheezes/rales/rhonchi
ABDOMEN: Soft, nondistended, without focal tenderness, no r/g, no cvat. normoactive BS.
NEUROLOGICAL: Alert and oriented x3, no focal neuro deficits. Gait is steady.
SKIN: Warm and dry, normal color, skin intact. No rash.
MUSCULOSKELETAL: No C/C/E. peripheral pulses are full and equal b/l. No palpable tenderness.
PSYCH: Moderately anxious.
Patient presents with right posterior occipital headache that appears tension headache in nature. No focal neuro deficits. Headache was not abrupt in onset, no associated symptoms.
She has longstanding history of similar headaches with known benign meningioma with stable repeated neuroimaging in the past.
Monitor shows normal sinus rhythm without ectopy. She remains hemodynamically stable. Mildly elevated blood pressure initially which has normalized promptly without intervention.
Longstanding history of anxiety and admits to significant increase in anxiety over the past several weeks. Intolerant to several medications trialed by her primary care physician.
I have offered an IM dose of Toradol for headache which she initially excepted but now declines, fears potential adverse reaction.
She also requests blood sugar check which has been done and is within normal limits at 107.
No indication for radiologic studies nor further laboratory studies.
Patient has been encouraged to follow-up with her PCP regarding her ongoing significant anxiety/chronic worries.
Continue lorazepam as prescribed.
Return precautions discussed.
Discharge Plan
Departure
Patient Disposition: Home (Routine Discharge)
Date of Disposition: 01/19/24
Time of Disposition: 05:37
Patient with high blood pressure during this ER visit?: No
Condition: Good
Discharge Problem:
Acute tension headache, Generalized anxiety disorder
Instructions: Tension Headache (DC), Generalized Anxiety Disorder (DC)
Prescriptions:
No Action
lorazepam 0.5 MG tablet
0.5 mg PO Q6HPRN PRN (Reason: anxiety) Qty: 12 0RF
ascorbic acid (vitamin C) 1,000 mg Tablet
1,000 mg PO DAILY
rabeprazole [AcipHex] 20 mg Tablet,Delayed Release (Dr/Ec)
20 mg PO DAILY
losartan 25 mg Tablet
25 mg PO DAILY
metoprolol succinate 25 mg Tablet Extended Release 24 Hr
25 mg PO DAILY
Women's Multivitamin
1 tab PO DAILY
alprazolam [Xanax] 0.25 mg tablet
0.25 mg PO TID PRN (Reason: anxiety) Qty: 7 0RF
prednisone 50 mg Tablet
50 mg PO DAILY Qty: 4 0RF
ketorolac 10 mg tablet
10 mg PO Q8H Qty: 10 0RF
prednisone 20 mg tablet
20 mg PO BID Qty: 10 0RF
ondansetron 8 mg tablet,disintegrating
8 mg PO TID PRN (Reason: nausea and vomiting) Qty: 20 0RF
ondansetron 4 mg Tablet,Disintegrating
4 mg PO BIDPRN PRN (Reason: nausea/vomiting) Qty: 10 0RF
Referrals:
Kenna Angelo PA-C [Family Provider] - Call in 1-3 days for appt
Interventions
Interventions:
*Risk Screen - Suicide Last Done: 01/19/24 03:05
*General Assessment Last Done: 01/19/24 03:05
*Neglect/Abuse Screening Last Done: 01/19/24 03:05
ED- Fall Risk Assessment Last Done: 01/19/24 03:05
*ED COVID-19 Vaccine History Last Done: 01/19/24 03:05
ED- Neurological Assessment Last Done: 01/19/24 03:21
Discharge Date and Time
Print Language: GREENLANDIC
[2024-01-19 05:00] VITALS: BP 133/64
[2024-01-19 05:26] LABS: Glucose - Point of Care 107 mg/dl (70-99)
== END 2024-01-19 05:57 | disposition home or self-care (01) ==
LOC: EMR 02:51
PROVIDERS: EMERGENCY PHYSICIAN Emergency Medicine; FAMILY PHYSICIAN Physician Assistant Medical
DX: G44.209 Tension-type headache, unspecified, not intractable (principal); F41.9 Anxiety disorder, unspecified; K21.9 Gastro-esophageal reflux disease without esophagitis; I10 Essential (primary) hypertension; K58.9 Irritable bowel syndrome, unspecified; Z98.51 Tubal ligation status
CPT/HCPCS: 99283; 82962

== ENCOUNTER 2024-06-25 14:14 | Emergency (ER) | payer OTHER, SELFPAY ==
[2024-06-25 14:22] VITALS: BP 178/88
--- NOTE | 2024-06-25 14:29 | ED.GENMED ---
ED Provider Triage
<Sanket Ryan PA-C - Last Filed: 06/25/24 14:30>
-
Patient seen by provider in Triage?: Seen in Triage
63-year-old female presents complaining of lower chest and upper abdominal pain after eating. She was short of breath during this episode but denies any diaphoresis or nausea. The pain was mainly right-sided and radiated around to her back and up
to her shoulder blade. She had chicken prior to this.
EKG done through triage. Will check labs including troponin and lipase. Ultrasound ordered as well as chest x-ray.
Patient received medical screening evaluation by healthcare provider through triage. She necessitates further evaluation
History of Present Illness
<Sanket Ryan PA-C - Last Filed: 06/25/24 14:30>
General
Chief Complaint: Chest Pain
Time Seen by Provider: 06/25/24 16:03
<Noah Martinez MD - Last Filed: 06/25/24 21:33>
General
Source: patient
Exam Limitations: none
Nursing documentation reviewed up to this point in time: agreed with
History of Present Illness
History of Present Illness:
Patient presents to ED secondary to sudden onset of upper abdominal pain rating to the back and right shoulder, an approximately 30 minutes after having lunch consisting of barbecue chicken. Patient does have history of reflux and takes omeprazole
daily. Abdominal pain described as sharp, without any alleviating or exacerbating factors. Since then, abdominal pain has improved gradually. At the time exam in ED, patient is without any discomfort. Patient states that she had similar episode
1 year ago when she was treated for colitis. Denies chest pain. Denies shortness of breath. Denies fever. Denies dizziness. Denies trauma. Denies difficulty with urination.
Past History
<Sanket Ryan PA-C - Last Filed: 06/25/24 14:30>
Past History
ED Past Medical History: GERD, HTN, Psychiatric (Anxiety), Other (IBS) and Other (Extra-axial 1.7 cm Meningioma noted on CAT scan July 2016)
ED Past Surgical History: Tonsilectomy and Other (tubal ligation, uterine ablation; breast biopsy)
Social History
Tobacco: Non-smoker
Alcohol: Occasional
Drug: None
Personal:
Living: with family
Employment: Employed
Family History
Family History: Other (Noncontributory)
Review of Systems
<Noah Martinez MD - Last Filed: 06/25/24 21:33>
Review of Systems
Allergies reviewed?: Yes
All Other Systems: ROS reviewed and negative except as documented in HPI and ROS
Constitutional: Reports no symptoms; Denies fever
EENT: Reports no symptoms
Respiratory: Reports no symptoms; Denies trouble breathing
Cardiac: Reports chest pain
ABD/GI: Reports abdominal pain; Denies vomiting or diarrhea
: Reports no symptoms
Musculoskeletal: Reports no symptoms
Skin: Reports no symptoms
Neurological: Reports no symptoms; Denies dizzy, headache or weakness
Phy Exam
<Noah Martinez MD - Last Filed: 06/25/24 21:33>
Physical Exam
Physical Exam:
Physical Exam
General: no apparent distress, not acutely ill. afebrile
Head: nc/at. eomi
Neck: supple. no meningeal signs.
Heart: s1/s2 regular rate and rhythm, no murmur. equal radial pulses.
Lungs: no acute respiratory distress. clear bilaterally
Abdomen: normal bowel sounds. not tender.
Neuro: alert and oriented. no focal neurological deficits
Skin: no rash
Psychiatric: well kept. interactive and cooperative
Extremities: no edema. no calf tenderness.
Scores
<Noah Martinez MD - Last Filed: 06/25/24 21:33>
Heart Score for Chest Pain Patients
STEMI patient?: Not applicable
Course
<Sanket Ryan PA-C - Last Filed: 06/25/24 14:30>
Orders/Labs/Results
Orders:
Orders
06/25/24 14:15
Electrocardiogram (*1) Urgent
Reason for Study: Chest Pain
EKG- Treatment ONCE
06/25/24 14:27
US Abdomen Complete/Upper Urgent
Comment:
Reason For Exam: ruq pain
06/25/24 14:29
CR Chest - 2 Views Urgent
Comment:
Reason For Exam: chest pain
06/25/24 15:52
Complete Blood Count/With Diff Urgent
Comprehensive Metabolic Panel Urgent
Lipase Urgent
Troponin I Urgent
Abnormal Lab Results
06/25/24
15:52
Absolute Monos (auto) 0.7 H 10^3/uL
(0.1-0.6)
BUN 18 H mg/dl
(7-17)
Glucose 102 H mg/dl
(70-99)
ALT 44 H U/L
(0-35)
06/25/24 15:52
06/25/24 15:52
Vital Signs
Initial and Last Documented VS:
Initial Vital Signs
Temp Pulse Resp BP Pulse Ox
97.9 F 84 16 178/88 100
06/25/24 14:22 06/25/24 14:22 06/25/24 14:22 06/25/24 14:22 06/25/24 14:22
Last Documented Vital Signs
Temp Pulse Resp BP Pulse Ox
97.9 F 92 17 154/67 99
06/25/24 14:22 06/25/24 17:15 06/25/24 17:15 06/25/24 16:04 06/25/24 17:15
<Noah Martinez MD - Last Filed: 06/25/24 21:33>
Orders/Labs/Results
Orders:
Orders
06/25/24 14:15
Electrocardiogram (*1) Urgent
Reason for Study: Chest Pain
EKG- Treatment ONCE
06/25/24 14:27
US Abdomen Complete/Upper Urgent
Comment:
Reason For Exam: ruq pain
06/25/24 14:29
CR Chest - 2 Views Urgent
Comment:
Reason For Exam: chest pain
06/25/24 15:52
Complete Blood Count/With Diff Urgent
Comprehensive Metabolic Panel Urgent
Lipase Urgent
Troponin I Urgent
Abnormal Lab Results
06/25/24
15:52
Absolute Monos (auto) 0.7 H 10^3/uL
(0.1-0.6)
BUN 18 H mg/dl
(7-17)
Glucose 102 H mg/dl
(70-99)
ALT 44 H U/L
(0-35)
06/25/24 15:52
06/25/24 15:52
Vital Signs
Initial and Last Documented VS:
Initial Vital Signs
Temp Pulse Resp BP Pulse Ox
97.9 F 84 16 178/88 100
06/25/24 14:22 06/25/24 14:22 06/25/24 14:22 06/25/24 14:22 06/25/24 14:22
Last Documented Vital Signs
Temp Pulse Resp BP Pulse Ox
97.9 F 92 17 154/67 99
06/25/24 14:22 06/25/24 17:15 06/25/24 17:15 06/25/24 16:04 06/25/24 17:15
<Noah Martinez MD - Last Filed: 06/25/24 21:33>
MDM/Problems Addressed
MDM/Problems Addressed:
History and exam consistent with likely gastritis versus ulcer versus reflux esophagitis versus less likely biliary colic. Patient with an unremarkable workup in ED, including blood work and imaging studies. Patient remains hemodynamically stable
and nontoxic-appearing. Patient will be discharged home in stable condition, to the care of her family, with recommendation to follow-up with her primary care physician for reevaluation as an outpatient advised to return to ED with recurrent or
worsening symptoms.
<Noah Martinez MD - Last Filed: 06/25/24 21:33>
*Critical Care Note
Total Time (30-74mins, 75-104mins- exclusive of procedures): Not Applicable
ED Attending Note
<Sanket Ryan PA-C - Last Filed: 06/25/24 14:30>
-
Portions of this chart may have been created with voice recognition software.� Occasional wrong word or��sound alike� substitutions may have occurred due to the inherent limitations of voice recognition software.
Discharge Plan
Departure
Patient Disposition: Home (Routine Discharge)
Date of Disposition: 06/25/24
Time of Disposition: 17:25
Patient with high blood pressure during this ER visit?: Yes
Discharge Problem:
Abdominal pain
Instructions: Vader Diet, Abdominal Pain
Prescriptions:
No Action
lorazepam 0.5 MG tablet
0.5 mg PO Q6HPRN PRN (Reason: anxiety) Qty: 12 0RF
ascorbic acid (vitamin C) 1,000 mg Tablet
1,000 mg PO DAILY
rabeprazole [AcipHex] 20 mg Tablet,Delayed Release (Dr/Ec)
20 mg PO DAILY
losartan 25 mg Tablet
25 mg PO DAILY
metoprolol succinate 25 mg Tablet Extended Release 24 Hr
25 mg PO DAILY
Women's Multivitamin
1 tab PO DAILY
alprazolam [Xanax] 0.25 mg tablet
0.25 mg PO TID PRN (Reason: anxiety) Qty: 7 0RF
prednisone 50 mg Tablet
50 mg PO DAILY Qty: 4 0RF
ketorolac 10 mg tablet
10 mg PO Q8H Qty: 10 0RF
prednisone 20 mg tablet
20 mg PO BID Qty: 10 0RF
ondansetron 8 mg tablet,disintegrating
8 mg PO TID PRN (Reason: nausea and vomiting) Qty: 20 0RF
ondansetron 4 mg Tablet,Disintegrating
4 mg PO BIDPRN PRN (Reason: nausea/vomiting) Qty: 10 0RF
Referrals:
Kenna Angelo PA-C [Family Provider] -
Activity Restrictions/Additional Instructions:
As discussed, please follow-up with your primary care physician and/or GI physician with any further concerns.
Interventions
Interventions:
*Risk Screen - Suicide Last Done: 06/25/24 14:22
*General Assessment Last Done: 06/25/24 14:22
*Neglect/Abuse Screening Last Done: 06/25/24 14:22
*ED COVID-19 Vaccine History Last Done: 06/25/24 14:22
*Nursing Disposition Last Done: 06/25/24 17:33
VA-Iwjggy-Erhxzvbptr Assessment Last Done: 06/25/24 15:53
ED- Cardiac Assessment Last Done: 06/25/24 15:53
Discharge Date and Time
Discharge Date/Time: 06/25/24 17:34
Print Language: SPANISH
[2024-06-25 16:04] VITALS: BP 154/67
[2024-06-25 16:54] LABS: % Basophils 0.7 % (0-2); % Eosinophils 1.6 % (0-6); % Immature Granulocytes 0.5 % (0-0.5); % Lymphocytes 28.1 % (20.5-51.1); % Monocytes 8.3 % (1.7-9.3); % Neutrophils 60.8 % (42.2-75.2); Absolute Basophils 0.1 10^3/uL (0-0.2); Absolute Eosinophils 0.1 10^3/uL (0-0.7); Absolute Lymphocytes 2.4 10^3/uL (1.2-3.4); Absolute Monocytes 0.7 10^3/uL (0.1-0.6); Absolute Neutrophils 5.3 10^3/uL (1.4-6.5); Hematocrit 40.5 % (37.0-47.0); Hemoglobin 14.1 g/dL (12.0-16.0); Mean Corp Hgb Conc. 34.8 g/dL (33.0-37.0); Mean Corpuscular Hgb 30.2 pg (27.0-31.0); Mean Corpuscular Volume 86.7 fL (81.0-99.0); Mean Platelet Volume 10.2 fL (7.4-10.4); Nucleated Red Blood Cells % 0 %; Platelet Count 307 10^3/uL (130-400); Red Blood Cell Count 4.67 10^6/uL (4.20-5.40); Red Cell Dist. Width 11.9 % (11.5-14.5); White Blood Cell Count 8.6 10^3/uL (4.8-10.8)
[2024-06-25 17:08] LABS: ALT (SGPT) 44 U/L (0-35); AST (SGOT) 35 U/L (14-36); Albumin 4.4 g/dl (3.5-5.0); Alkaline Phosphatase 102 U/L (38-126); Blood Urea Nitrogen 18 mg/dl (7-17); Calcium 9.9 mg/dl (8.4-10.2); Carbon Dioxide 24 mmol/L (22-30); Chloride 106 mmol/L (98-107); Glucose 102 mg/dl (70-99); Lipase 150 U/L (23-300); Potassium 4.4 mmol/L (3.5-5.1); Sodium 141 mmol/L (135-145); Total Bilirubin 0.3 mg/dl (0.2-1.3); Total Protein 6.7 g/dl (6.3-8.2); eGFR > 60.00
[2024-06-25 17:19] LABS: Troponin I < 0.012 ng/ml
== END 2024-06-25 17:34 | disposition home or self-care (01) ==
LOC: EMR 14:14
PROVIDERS: Physician Assistant; EMERGENCY PHYSICIAN Emergency Medicine; FAMILY PHYSICIAN Physician Assistant Medical
DX: R10.10 Upper abdominal pain, unspecified (principal); I10 Essential (primary) hypertension
CPT/HCPCS: 99285; 71046; 76700; 80053; 83690; 84484; 85025; 93005

== ENCOUNTER 2024-10-07 12:19 | Emergency (ER) | payer OTHER, SELFPAY ==
[2024-10-07 12:20] VITALS: BP 156/101
[2024-10-07] MEDS: NSS 1000 IV (15:11)
[2024-10-07] MEDS: TORADOL 15 MG IV (15:11)
[2024-10-07 15:13] VITALS: BMI 33.4
[2024-10-07 15:20] LABS: % Basophils 0.3 % (0-2); % Eosinophils 0.2 % (0-6); % Immature Granulocytes 0.4 % (0-0.5); % Monocytes 4.7 % (1.7-9.3); % Neutrophils 91.4 % (42.2-75.2); Absolute Immature Granulocytes 0.1 10^3/uL (0-0.05); Absolute Lymphocytes 0.4 10^3/uL (1.2-3.4); Absolute Monocytes 0.6 10^3/uL (0.1-0.6); Absolute Neutrophils 12.5 10^3/uL (1.4-6.5); Hematocrit 44.8 % (37.0-47.0); Hemoglobin 15.2 g/dL (12.0-16.0); Mean Corp Hgb Conc. 33.9 g/dL (33.0-37.0); Mean Corpuscular Hgb 29.5 pg (27.0-31.0); Mean Platelet Volume 9.7 fL (7.4-10.4); Nucleated Red Blood Cells % 0 %; Platelet Count 337 10^3/uL (130-400); Red Blood Cell Count 5.15 10^6/uL (4.20-5.40); White Blood Cell Count 13.6 10^3/uL (4.8-10.8)
[2024-10-07 15:32] LABS: ALT (SGPT) 32 U/L (0-35); AST (SGOT) 27 U/L (14-36); Albumin 4.2 g/dl (3.5-5.0); Alkaline Phosphatase 107 U/L (38-126); Blood Urea Nitrogen 19 mg/dl (7-17); Calcium 9.5 mg/dl (8.4-10.2); Carbon Dioxide 26 mmol/L (22-30); Chloride 106 mmol/L (98-107); Estimated Creatinine Clearance 99 ml/min; Glucose 99 mg/dl (70-99); Lipase 80 U/L (23-300); Potassium 4.6 mmol/L (3.5-5.1); Sodium 140 mmol/L (135-145); Total Protein 6.8 g/dl (6.3-8.2); eGFR > 60.00
[2024-10-07 16:34] VITALS: BP 140/69
[2024-10-07 16:36] VITALS: BP 140/69
[2024-10-07 16:40] LABS: Urine Albumin 1+ (Neg - Trace); Urine Bilirubin Negative (Negative); Urine Character Clear (Clear); Urine Color Yellow; Urine Glucose Negative (Negative); Urine Ketone 2+ (Negative); Urine Leukocyte 2+ (Negative); Urine Nitrite Negative (Negative); Urine Occult Blood Negative (Negative); Urine Urobilinogen Negative (Neg - 1+)
[2024-10-07 17:14] LABS: Urine Mucus Moderate
[2024-10-07 17:15] LABS: Urine Bacteria Moderate (Negative); Urine Red Blood Cell 0-2 /HPF (0-2); Urine White Cell 16-20 /HPF (0-5)
--- NOTE | 2024-10-07 17:28 | ED.GENMED ---
History of Present Illness
General
Chief Complaint: Abdominal Pain
Time Seen by Provider: 10/07/24 13:58
History of Present Illness
History of Present Illness:
63-year-old female presents the emergency department for evaluation of right upper abdominal pain radiating toward the scapula beginning yesterday. Gradually worsening today. She also reports that the pain is worse and she is chest discomfort.
Nausea without vomiting reported. No prior abdominal surgeries. No fevers or chills
Past History
Past History
ED Past Medical History: GERD, HTN, Psychiatric (Anxiety), Other (IBS) and Other (Extra-axial 1.7 cm Meningioma noted on CAT scan July 2016)
ED Past Surgical History: Tonsilectomy and Other (tubal ligation, uterine ablation; breast biopsy)
Social History
Tobacco: Non-smoker
Alcohol: Occasional
Drug: None
Personal:
Living: with family
Employment: Employed
Family History
Family History: Other (Noncontributory)
Review of Systems
Review of Systems
Allergies reviewed?: Yes
All Other Systems: ROS reviewed and negative except as documented in HPI and ROS
Phy Exam
Physical Exam
Physical Exam:
GEN: Well appearing, NAD, WDWN
HEENT: Oral mucosa moist, no scleral icterus
Cardiac: Regular rate
Lung: No respiratory distress, no tachypnea
Abdomen: Soft, focal right upper quadrant and epigastric tenderness
MSK: No gross deformity or injuries
Skin: Good color, no pallor or jaundice, no rashes
Neuro: AO x3, moves all extremities freely
Psych: Calm, cooperative
Course
Orders/Labs/Results
Orders:
Orders
10/07/24 12:22
ECG [Electrocardiogram (*1)] Urgent
Reason for Study: Chest Pain
10/07/24 12:23
EKG- Treatment ONCE
10/07/24 14:10
0.9% Sodium Chloride 1000 ml [Nss] 1,000 ml IV BOLUS
Ketorolac [Toradol] 15 mg IV NOW STA
US Abdomen Complete/Upper Urgent
Comment:
Reason For Exam: RUQ pain
10/07/24 15:09
Complete Blood Count/With Diff Urgent
Comprehensive Metabolic Panel Urgent
Lipase Urgent
Troponin I Urgent
10/07/24 16:32
Urinalysis Reflex To Culture Urgent
Date Specimen was Collected: 10/07/24
Time Specimen was Collected: 16:30
Urine Microscopic Reflex Cult Urgent
Urine Culture Urgent
GABRIELA Source: U
Specimen Description:
Date Specimen was Collected: 10/07/24
Time Specimen was Collected: 16:30
10/07/24 17:26
CefTRIAXone [Rocephin] 1,000 mg IV NOW STA
Abnormal Lab Results
10/07/24 10/07/24
15:09 16:32
WBC 13.6 H 10^3/uL
(4.8-10.8)
Abs Immat Gran (auto) 0.1 H 10^3/uL
(0-0.05)
Absolute Neuts (auto) 12.5 H 10^3/uL
(1.4-6.5)
Absolute Lymphs (auto) 0.4 L 10^3/uL
(1.2-3.4)
Neutrophils % 91.4 H %
(42.2-75.2)
Lymphocytes % 3.0 L %
(20.5-51.1)
BUN 19 H mg/dl
(7-17)
Urine Ketones 2+ A
(Negative)
Leukocyte Esterase Rfl 2+ A
(Negative)
Urine WBC (Reflex) 16-20 A /HPF
(0-5)
Urine Bacteria (Reflex) Moderate A
(Negative)
Urine Albumin (Reflex) 1+ A
(Neg - Trace)
10/07/24 15:09
10/07/24 15:09
Vital Signs
Initial and Last Documented VS:
Initial Vital Signs
Temp Pulse Resp BP Pulse Ox
98.3 F 116 20 156/101 99
10/07/24 12:20 10/07/24 12:20 10/07/24 12:20 10/07/24 12:20 10/07/24 12:20
Last Documented Vital Signs
Temp Pulse Resp BP Pulse Ox
98.3 F 101 18 152/68 97
10/07/24 12:20 10/07/24 17:56 10/07/24 17:56 10/07/24 17:56 10/07/24 17:56
MDM/Problems Addressed
MDM/Problems Addressed:
Ultrasound is unremarkable labs are otherwise reassuring. Troponin negative. Urinalysis suggestive of UTI, given flank discomfort we will treat as acute nephritis. Suitable for outpatient management
*Critical Care Note
Total Time (30-74mins, 75-104mins- exclusive of procedures): Not Applicable
ED Attending Note
-
Portions of this chart may have been created with voice recognition software.� Occasional wrong word or��sound alike� substitutions may have occurred due to the inherent limitations of voice recognition software.
Discharge Plan
Departure
Patient Disposition: Home (Routine Discharge)
Date of Disposition: 10/07/24
Time of Disposition: 17:28
Patient with high blood pressure during this ER visit?: No
Discharge Problem:
Pyelonephritis
Instructions: Urinary tract infections in adults
Prescriptions:
New
cefdinir 300 mg capsule
300 mg PO BID Qty: 14 0RF
No Action
lorazepam 0.5 MG tablet
0.5 mg PO Q6HPRN PRN (Reason: anxiety) Qty: 12 0RF
ascorbic acid (vitamin C) 1,000 mg Tablet
1,000 mg PO DAILY
rabeprazole [AcipHex] 20 mg Tablet,Delayed Release (Dr/Ec)
20 mg PO DAILY
losartan 25 mg Tablet
25 mg PO DAILY
metoprolol succinate 25 mg Tablet Extended Release 24 Hr
25 mg PO DAILY
Women's Multivitamin
1 tab PO DAILY
alprazolam [Xanax] 0.25 mg tablet
0.25 mg PO TID PRN (Reason: anxiety) Qty: 7 0RF
prednisone 50 mg Tablet
50 mg PO DAILY Qty: 4 0RF
ketorolac 10 mg tablet
10 mg PO Q8H Qty: 10 0RF
prednisone 20 mg tablet
20 mg PO BID Qty: 10 0RF
ondansetron 8 mg tablet,disintegrating
8 mg PO TID PRN (Reason: nausea and vomiting) Qty: 20 0RF
ondansetron 4 mg Tablet,Disintegrating
4 mg PO BIDPRN PRN (Reason: nausea/vomiting) Qty: 10 0RF
Referrals:
Kenna Angelo PA-C [Family Provider] -
Interventions
Interventions:
*Risk Screen - Suicide Last Done: 10/07/24 16:37
*General Assessment Last Done: 10/07/24 16:37
*Neglect/Abuse Screening Last Done: 10/07/24 16:37
*ED- Fall Risk Assessment Last Done: 10/07/24 16:37
*ED COVID-19 Vaccine History Last Done: 10/07/24 16:37
*Nursing Disposition Last Done: 10/07/24 18:08
TS-Vqsule-Xumuhpirim Assessment Last Done: 10/07/24 15:00
Discharge Date and Time
Discharge Date/Time: 10/07/24 18:08
Print Language: TAJIK
[2024-10-07 17:32] LABS: Troponin I < 0.012 ng/ml
[2024-10-07 17:54] VITALS: BP 152/68
[2024-10-07] MEDS: ROCEPHIN 1000 MG IV (17:55)
[2024-10-07 17:56] VITALS: BP 152/68
== END 2024-10-07 18:08 | disposition home or self-care (01) ==
LOC: EMR 12:19
PROVIDERS: Emergency Medicine; Physician Assistant; EMERGENCY PHYSICIAN Emergency Medicine; FAMILY PHYSICIAN Physician Assistant Medical
DX: N12 Tubulo-interstitial nephritis, not specified as acute or chronic (principal); I10 Essential (primary) hypertension; K58.9 Irritable bowel syndrome, unspecified
CPT/HCPCS: 99284; 96374; 96375; 96361; 76700; 80053; 81003; 81015; 83690; 84484; 85025; 87086; 93005

== ENCOUNTER 2024-10-07 23:16 | Inpatient (IN) | payer OTHER, SELFPAY ==
[2024-10-07 20:44] VITALS: BP 168/94
[2024-10-07 20:58] VITALS: BP 157/86
[2024-10-07 21:00] VITALS: BP 164/87
[2024-10-07 21:05] VITALS: BMI 33.6
--- NOTE | 2024-10-07 21:06 | ED.GENMED ---
History of Present Illness
General
Chief Complaint: Fever
Source: patient and records
Time Seen by Provider: 10/07/24 20:56
History of Present Illness
History of Present Illness:
63-year-old female with past medical history of migraines, hypertension, hyperlipidemia, GERD, seen here earlier this afternoon and diagnosed with pyelonephritis, discharged home on oral antibiotics, presenting back to the emergency department after
she got home stated she had reoccurring back pain, headache, fever, near syncope and 'feeling awful'. Patient does note prior to her discharge she was feeling much better and did feel comfortable being discharged home. Presently still noting
bilateral flank pain as well as a headache. Patient did note nausea and vomiting at home and still has persistent nausea. Patient was unaware that she had a fever upon returning back to the emergency department which is why she did not take
anything for the fever. No known sick contacts or recent travel. Patient states that she did have a negative COVID test earlier this week.
Past History
Past History
ED Past Medical History: GERD, HTN, Hypercholesterolemia, Psychiatric (Anxiety), Other (IBS) and Other (Extra-axial 1.7 cm Meningioma noted on CAT scan July 2016)
ED Past Surgical History: Tonsilectomy and Other (tubal ligation, uterine ablation; breast biopsy)
Social History
Tobacco: Non-smoker
Alcohol: Occasional
Drug: None
Personal:
Living: with family
Employment: Employed
Family History
Family History: Other (Noncontributory)
Review of Systems
Review of Systems
All Other Systems: ROS reviewed and negative except as documented in HPI and ROS
Phy Exam
Physical Exam
Physical Exam:
GENERAL: Alert , in no apparent distress but is tearful and upset
EYE: clear conjunctiva b/l
HEAD: NCAT
ENT: o/p clr, mmm.
CARDIAC: Tachycardic rate and rhythm
LUNGS: Clear breath sounds bilaterally, no acute respiratory distress, no wheezes/rales/rhonchi
ABDOMEN: Soft, without focal tenderness, no r/g, right flank tenderness
NEUROLOGICAL: Alert and oriented
SKIN: Warm and dry, skin intact.
MUSCULOSKELETAL: well perfused.
PSYCH: Normal and appropriate interaction.
Scores
Heart Failure Risk
Heart Failure Risk Score: Not Applicable
Heart Score for Chest Pain Patients
STEMI patient?: Not applicable
Withdrawal Assessment of Alcohol
Withdrawal Assessment Completed?: Not applicable
Course
Orders/Labs/Results
Orders:
Orders
10/07/24 20:57
0.9% Sodium Chloride 1000 ml [Nss] 1,000 ml IV BOLUS
Acetaminophen [Tylenol] 1,000 mg PO NOW STA
10/07/24 21:05
Diphenhydramine [Benadryl] 25 mg IV NOW STA
Metoclopramide [Reglan] 10 mg IV NOW STA
10/07/24 21:15
COVID-19 Antigen Urgent
Source: Nasal Swab
Lactic Acid Q4H
Comment: CANCEL 2nd LACTIC ACID IF 1st LACTIC ACID IS LESS THAN 2
Blood Culture Q30M
GABRIELA Source: Blood/Venous
Specimen Description:
Influenza A+B Rapid Molecular Urgent
GABRIELA Source: Nasal Swab
Specimen Description:
10/07/24 21:30
Blood Culture Q30M
GABRIELA Source: Blood/Venous
Specimen Description:
10/08/24 01:00
Lactic Acid Q4H
Comment: CANCEL 2nd LACTIC ACID IF 1st LACTIC ACID IS LESS THAN 2
Vital Signs
Initial and Last Documented VS:
Initial Vital Signs
Temp Pulse Resp BP Pulse Ox
101.0 F H 118 17 168/94 97
10/07/24 20:44 10/07/24 20:44 10/07/24 20:44 10/07/24 20:44 10/07/24 20:44
Last Documented Vital Signs
Temp Pulse Resp BP Pulse Ox
101.0 F H 118 17 168/94 97
10/07/24 20:44 10/07/24 20:44 10/07/24 20:44 10/07/24 20:44 10/07/24 20:44
MDM/Problems Addressed
Differential Diagnosis Includes:
Pyelonephritis, urosepsis, flu/COVID or other viral etiology, no concern for biliary colic/cholecystitis given recent workup today
MDM/Problems Addressed:
63-year-old female presenting to the ER due to fever, near syncope, worsening flank pain and headache. Seen earlier this afternoon, discharged home feeling better but returns back with worsening symptoms. Patient given dose of Rocephin prior to
her discharge earlier this evening. Found to be febrile and tachycardic. Lactic acid and blood culture ordered. COVID and flu testing ordered. Will treat with fluids, Tylenol, Reglan and Benadryl for headache as well as nausea/vomiting. Patient
to be admitted
*Pulse Oximetry
Patient hypoxic: no
Data Reviewed
Review of Other/Old Records Reveals: Labs, Records and Radiology Studies
ED Attending Note
-
Portions of this chart may have been created with voice recognition software.� Occasional wrong word or��sound alike� substitutions may have occurred due to the inherent limitations of voice recognition software.
Discharge Plan
Departure
Patient Disposition: Admit
Date of Disposition: 10/07/24
Time of Disposition: 21:34
Presentation/result/management discussed w/ accepting MD/DO: Hospitalist
Discharge Problem:
Pyelonephritis, Near syncope
Prescriptions:
No Action
lorazepam 0.5 MG tablet
0.5 mg PO Q6HPRN PRN (Reason: anxiety) Qty: 12 0RF
ascorbic acid (vitamin C) 1,000 mg Tablet
1,000 mg PO DAILY
rabeprazole [AcipHex] 20 mg Tablet,Delayed Release (Dr/Ec)
20 mg PO DAILY
losartan 25 mg Tablet
25 mg PO DAILY
metoprolol succinate 25 mg Tablet Extended Release 24 Hr
25 mg PO DAILY
Women's Multivitamin
1 tab PO DAILY
alprazolam [Xanax] 0.25 mg tablet
0.25 mg PO TID PRN (Reason: anxiety) Qty: 7 0RF
prednisone 50 mg Tablet
50 mg PO DAILY Qty: 4 0RF
ketorolac 10 mg tablet
10 mg PO Q8H Qty: 10 0RF
prednisone 20 mg tablet
20 mg PO BID Qty: 10 0RF
ondansetron 8 mg tablet,disintegrating
8 mg PO TID PRN (Reason: nausea and vomiting) Qty: 20 0RF
ondansetron 4 mg Tablet,Disintegrating
4 mg PO BIDPRN PRN (Reason: nausea/vomiting) Qty: 10 0RF
cefdinir 300 mg capsule
300 mg PO BID Qty: 14 0RF
Interventions
Interventions:
*Risk Screen - Suicide Last Done: 10/07/24 20:46
*General Assessment Last Done: 10/07/24 20:46
*Neglect/Abuse Screening Last Done: 10/07/24 20:46
*ED COVID-19 Vaccine History Last Done: 10/07/24 20:46
Discharge Date and Time
Print Language: TURKISH
[2024-10-07] MEDS: NSS 1000 IV (21:22)
[2024-10-07] MEDS: BENADRYL 25 MG IV (21:26)
[2024-10-07] MEDS: REGLAN 10 MG IV (21:30)
[2024-10-07 21:34] LABS: Lactic Acid 2.2 mmol/L (0.7-2.0)
[2024-10-07] MEDS: TYLENOL 1000 MG PO (21:34)
[2024-10-07 21:47] LABS: COVID-19 Antigen Negative (Negative)
[2024-10-07 22:00] VITALS: BP 154/83
--- NOTE | 2024-10-07 22:32 | W.PN.UPDATE ---
Update Note
Progress Note Update
This note serves as an addendum to the H&P by internal medicine nurse practitioner MARIA T Awa GUARDADO
HPI
63F HX migraines, hypertension, hyperlipidemia, GERD seen earlier this afternoon and diagnosed with pyelonephritis, discharged home on oral antibiotics return to ER ;
- after she got home stated she had reoccurring back pain, headache, fever, near syncope
- patient does note prior to her discharge she was feeling much better and did feel comfortable being discharged
- bilateral flank pain as well as a headache
- nausea and vomiting at home and still has persistent nausea.
No known sick contacts or recent travel.
PHX: see above
VSS
10/07/24
17:56 10/07/24
20:44
Temp 101.0 F H
Pulse 101 118
Resp Rate 18 17
Blood pressure 152/68 168/94
SaO2 97 97
10/07/24
15:09
WBC 13.6 H
Creatinine 0.6
Troponin I < 0.012
10/07/24 10/07/24
16:32 21:15
Lactic Acid 2.2 H
Urine Nitrite (Reflex) Negative
Leukocyte Esterase Rfl 2+ A
Urine WBC (Reflex) 16-20 A
Urine Bacteria (Reflex) Moderate A
SARS-CoV-2 Antigen Negative
PE
Gen: Not toxic . looks uncomfortable
HEENT: anicteric
Neck: supple
Lungs: CTA
Cor: RRR S1 S2
Abdomen: right flank tenderness
DIRECTOR OF OPERATIONS HOME HEALTH: AAO3 NFND
MS: no edema
Psych: approriate
US Abdomen Complete/Upper
- Normal appearance of the gallbladder.
- CBD is mildly dilated, measuring up to 8 mm, unchanged from ultrasound of June 25, 2024. Stability and normal liver function tests suggest that this is likely physiologic.
- Diffuse fatty infiltration of the liver.
- The pancreas and abdominal aorta are unable to be adequately visualized.
ASSESSMENT & PLAN
Severe sepsis ( T101, tachycardic, LA 2.1 ) due to complicated UTI with acute pyelonephritic : s/p IV CFTZ at first ER visit today
Rt flank pain/vomiting at Home; No more emesis at ER
Asso. near syncope
POS LA
Remote HX Acute PN 33 yrs ago when she was
No prior HC Nephrolithiasis
- c/w IV CFTZ in place of PO Cefdinir
- IV NS 100/h
- PRN IV Toradol Analgesia
- Tylenol PRN
- f/u BCx and UCx sent from first ER visit on 10/08/23
Essential HTN
- losartan 25 mg
- Metoprol succinated 25mg
DVT Px: LMWH
Full code
IP TLM
--- NOTE | 2024-10-07 22:42 | HPS.HSE ---
Family Physician
-
Family Physician: Kenna Angelo PA-C
Chief Complaint
-
Nausea, bilateral flank pain, dizziness, fever
History of Present Illness
63-year-old female seen earlier today in the emergency department was diagnosed with pyelonephritis discharged to home on oral antibiotics however after she got home she had reoccurring back pain, headache, fever and near syncope and reports was
feeling awful. She reports she had persistent nausea with vomiting at home. Upon returning back to the ER she was unaware that she had a temperature of 101.F. She tells me she has had ongoing bilateral back pain, points to the area of bilateral
flanks for the past 5 days but thought it was her sciatic pain. I advised patient the sciatic area is much lower and near the buttocks not her upper flank area. She denies any actual vomiting states she only had dry heaves. She also states she is
had increased thirst but no dysuria.
She has past medical history of HTN, HLD, anxiety, IBS, GERD, 1.7 cm meningioma noted on CT July 2016, S/P endometrial ablation for dysfunctional uterine bleeding
Medical History
Past Medical History
Past Medical History: Reports Other
Additional Past Medical History:
GERD
HTN
HLD
Anxiety
IBS
Extra-axial 1.[address] July 2016
Class I obesity�BMI 33.6
Past Surgical History: Reports Other
Additional Past Surgical History:
S/P endometrial ablation for dysfunctional uterine bleeding
Breast biopsy
Tonsillectomy
Social History
Tobacco: Non-smoker
Alcohol: None
Drug: None
Personal:
Living: With Family
Employment: Retired
Family History
Family History: Other (Mother living age 94 history of CVA in her 80s, history anxiety, father bile duct cancer late 70s)
Allergies / Home Medications
Allergies reflects when Allergies were last updated in [facility].
Home Medications with original date entered in [facility]
Allergy/Medication List:
Allergies
Allergy/AdvReac Type Severity Reaction Status Date / Time
diazepam Allergy dystonic Verified 10/07/24 12:22
reaction
hydromorphone [From Dilaudid] Allergy Nausea / Verified 10/07/24 12:22
Vomiting
latex Allergy Unknown Verified 10/07/24 12:22
propoxyphene Allergy Unknown Verified 10/07/24 12:22
sumatriptan [From Imitrex] Allergy Rash Verified 10/07/24 12:22
tetracycline Allergy Unknown Verified 10/07/24 12:22
Tetracyclines Allergy Unknown Verified 10/07/24 12:22
Home Medications
lorazepam 0.5 mg tablet 0.5 mg PO Q6HPRN PRN anxiety #12 tabs 02/15/18
ascorbic acid (vitamin C) 1,000 mg tablet 1,000 mg PO DAILY 10/01/22
losartan 25 mg tablet 25 mg PO DAILY 10/01/22
metoprolol succinate 25 mg tablet,extended release 24 hr 25 mg PO DAILY 10/01/22
atorvastatin 20 mg tablet 20 mg PO Q48H 10/07/24
cholecalciferol (vitamin D3) 10 mcg (400 unit) capsule (Vitamin D3) 10 mcg PO DAILY 10/07/24
omeprazole 40 mg capsule,delayed release 40 mg PO DAILY 10/07/24
zinc 10 mg tablet 10 mg PO DAILY 10/07/24
Review of Systems
-
History Source: Patient and Family
A 12 point ROS was completed and negative except as noted: Yes
Constitutional: Reports Fever and Chills
EENT: Denies Sore Throat or Runny Nose
Respiratory: Denies Cough or Trouble Breathing
Cardiac: Denies Chest Pain, Diaphoresis, Palpitations or Syncope
Abdomen/GI: Reports Nausea and Vomiting (Dry heaves); Denies Abdominal Pain, Diarrhea, Constipated, Bloody Stools or Black Stools
: Reports Flank Pain (Bilateral); Denies Dysuria, Frequency, Incontinence, Difficulty Voiding, Urgency or Bleeding
Musculoskeletal: Denies Joint Pain or Edema
Skin: Denies Itching or Rash
Neurological: Reports Dizzy and Weakness (Generalized second of fever)
Endocrine: Reports Polydipsia
Hematologic/Lymphatic: Reports No Symptoms
Psych: Reports Calm
Physical Exam
Vital Signs
Vital Signs
Temp Pulse Resp BP Pulse Ox
99.0 F 107 22 154/83 98
10/07/24 22:29 10/07/24 22:15 10/07/24 22:15 10/07/24 22:00 10/07/24 22:15
Physical Exam
General: Conversant, Fever and Chills
HEENT: NormoCephalic, Anicteric, Moist mucous membranes, PERRLA, [place] Conjunctivae and No Ptosis
Respiratory: Clear; No Wheezes, Rales or Rhonchi
Cardiac: S1/S2 and Regular Rhythm; No Murmur, Rub, Gallop or Peripheral Edema
Breast: Deferred by me
GI: Soft, Non Distended, Normal Bowel Sounds, Tender (Left and right lateral abdomen) and No Hepatosplenomegaly
Rectal: Deferred by Provider
Genito-urinary: Costovertebral angle tend (Bilateral flank tenderness)
Musculoskeletal: No Clubbing, No Cyanosis and No Edema
Skin: Warm and Dry; No Rash or Jaundice
Neuro: AO x 3, No Motor Deficits, Nonfocal/grossly intact, Cranial Nerves Intact and No Sensory Deficits; No Slurred Speech, Facial Droop, Tremors or Sedated
Psych: Calm
Laboratory Results
-
Laboratory Results
Lactic Acid 2.2 mmol/L (0.7-2.0) H 10/07/24 21:15
Data Reviewed
-
CT Scan: Report Reviewed by me
Lab Data: Labs Reviewed by me
Impression/Plan
-
Impression/plan:
Admit to telemetry
#Sepsis secondary to acute pyelonephritis
WBC 13.6 with left shift, lactic acid 2.2,HR 107, 101F, 154/83
Influenza /COVID negative
Patient given IV Rocephin 1 g earlier today in ER
-Continue IV Rocephin 1 g daily
-Tylenol as needed fever
-As needed Zofran as needed
-Clear liquids advance as tolerated
-Blood cultures x 2
-IV NSS 100 cc/h
-Follow CBC, CMP
#GERD
-Continue omeprazole 40 mg daily
#HTN
BP 154/83
-Continue losartan 25 mg daily, metoprolol succinate 25 mg daily with hold parameters
#HLD
Continue atorvastatin 20 mg every 48 H
#Anxiety
-Continue lorazepam 0.5 mg every 6 hours as needed anxiety
#IBS hx
#Extra-axial 1.[address] July 2016
DVT prophylaxis
-Subcu Lovenox
Full code
[2024-10-07 23:00] VITALS: BP 152/82
[2024-10-08] VITALS (7 sets, daily range): BP systolic 107–153; BP diastolic 61–93; BMI 33.2; BMI 33.1
[2024-10-08] MEDS: NSS 1000 IV ×3 (00:05→20:25)
[2024-10-08] MEDS: TORADOL 15 MG IV ×2 (00:24→13:31)
[2024-10-08] MEDS: ZOFRAN 4 MG IV (03:24)
[2024-10-08] MEDS: TYLENOL 650 MG PO (03:24)
--- NOTE | 2024-10-08 05:47 | DOWNTIME ---
There was a [employer] Downtime on 10/08/2024 from 0100 to 10/09/2023 at 0420 . Downtime documentation of patient's care, including medication administrations, has been reconciled in the electronic record per guidelines. Refer to the
patient's paper chart under the miscellaneous tab to see printed paper medication records and downtime forms.
[2024-10-08 06:33] LABS: % Basophils 0.1 % (0-2); % Eosinophils 0.1 % (0-6); % Immature Granulocytes 0.6 % (0-0.5); % Lymphocytes 5.4 % (20.5-51.1); % Monocytes 7.5 % (1.7-9.3); % Neutrophils 86.3 % (42.2-75.2); Absolute Lymphocytes 0.4 10^3/uL (1.2-3.4); Absolute Monocytes 0.5 10^3/uL (0.1-0.6); Absolute Neutrophils 6.1 10^3/uL (1.4-6.5); Hematocrit 39.3 % (37.0-47.0); Hemoglobin 13.7 g/dL (12.0-16.0); Mean Corp Hgb Conc. 34.9 g/dL (33.0-37.0); Mean Corpuscular Hgb 29.7 pg (27.0-31.0); Mean Corpuscular Volume 85.1 fL (81.0-99.0); Mean Platelet Volume 11.2 fL (7.4-10.4); Nucleated Red Blood Cells % 0 %; Platelet Count 235 10^3/uL (130-400); Red Blood Cell Count 4.62 10^6/uL (4.20-5.40); Red Cell Dist. Width 12.2 % (11.5-14.5)
[2024-10-08 06:51] LABS: ALT (SGPT) 29 U/L (0-35); AST (SGOT) 28 U/L (14-36); Albumin 3.5 g/dl (3.5-5.0); Alkaline Phosphatase 82 U/L (38-126); Blood Urea Nitrogen 14 mg/dl (7-17); Calcium 8.5 mg/dl (8.4-10.2); Carbon Dioxide 18 mmol/L (22-30); Chloride 108 mmol/L (98-107); Estimated Creatinine Clearance 99 ml/min; Glucose 108 mg/dl (70-99); Potassium 4.1 mmol/L (3.5-5.1); Sodium 136 mmol/L (135-145); Total Bilirubin 0.6 mg/dl (0.2-1.3); Total Protein 5.6 g/dl (6.3-8.2); eGFR > 60.00
[2024-10-08] MEDS: PROTONIX 40 MG PO (08:23)
[2024-10-08] MEDS: COZAAR 25 MG PO (08:25)
[2024-10-08] MEDS: TOPROL XL 25 MG PO (08:25)
[2024-10-08] MEDS: TYLENOL 1000 MG PO ×2 (08:26→22:51)
--- NOTE | 2024-10-08 11:58 | W.PN.HOSP.TC ---
Addendum entered and electronically signed by Nakia Jacob MD 10/08/24 13:55:
addendum
Patient is having diarrhea. No fever. No history of C. difficile in the past, will check C. difficile, noro virus screen. Will give probiotic tablets
End
Original Note:
Today's Communication/Plan
-
f/w ID recommendations
Assessment / Plan
Assessment / Plan
Physical Exam
General: Conversant, comfortable, not in distress
HEENT: NormoCephalic, Anicteric, Moist mucous membranes, PERRLA, [place] Conjunctivae and No Ptosis
Respiratory: Clear;
Cardiac: S1/S2 a
GI: Soft, Non Distended, Normal Bowel Sounds, no CV tenderness.
Rectal: No bleeding
Genito-urinary: no hematuria.
Musculoskeletal: No Clubbing, No Cyanosis and No Edema
Skin: Warm and Dry; No Rash or Jaundice
Neuro: AO x 3, Nonfocal/grossly intact.
Psych: Calm
#Sepsis secondary to acute pyelonephritis
WBC 13.6 with left shift, lactic acid 2.2,HR 107, 101F, 154/83
Influenza /COVID negative
Patient given IV Rocephin 1 g earlier today in ER
-Continue IV Rocephin 1 g daily
-Tylenol as needed fever
-As needed Zofran as needed
-Blood cultures x 2
- lactic acid normalized.
-IV NSS 100 cc/h
-Follow CBC, CMP
- Consulted ID, appreciate help
# Headache
Known migraine
Takes Tylenol, try IV Toradol
#GERD
#Primary HTN
BP 157/78
-Continue losartan 25 mg daily, metoprolol succinate 25 mg daily with hold parameters
#HLD
Continue atorvastatin 20 mg every 48 H
#Anxiety
-Continue lorazepam 0.5 mg every 6 hours as needed anxiety
#IBS hx
#Extra-axial 1.[address] July 2016
DVT prophylaxis
-Subcu Lovenox
Total time spent to see the patient, examine the patient, review data and lab results, discuss treatment plan with patient and nursing staff around 55 minutes
Anticipated Discharge: Within 24 hours
Subjective/Interval History
-
Date of Service: October 08, 2024
Complains of headache
No renal colic
No dysuria
Objective Data
-
Labs:
Laboratory Results
10/08/24
05:23
WBC 7.0
Hgb 13.7
Hct 39.3
Plt Count 235 D
Sodium 136
Potassium 4.1
Chloride 108 H
Carbon Dioxide 18 L
BUN 14
Creatinine 0.5 L
Glucose 108 H
Calcium 8.5
Total Bilirubin 0.6
AST 28
ALT 29
Alkaline Phosphatase 82
Vital Signs:
Vital Signs
Temp Pulse Resp BP Pulse Ox
98.5 F 87 16 134/74 96
10/08/24 11:17 10/08/24 11:17 10/08/24 11:17 10/08/24 11:17 10/08/24 11:17
[2024-10-08] MEDS: VISBIOME 2 CAP PO (14:02)
--- NOTE | 2024-10-08 14:51 | CON.ID ---
Addendum entered and electronically signed by Dannie Butler, DO 10/08/24 16:48:
I personally performed a history and physical exam of the patient and discussed management with the resident. I reviewed the resident's note and agree with the documented findings and plan of care HPI/CC.
Continue with antibiotics for today.
Monitor white count temperature curve.
If patient remains clinically stable, may de-escalate or discontinue antibiotics in the next 24 hours.
Original Note:
Consultation
-
Date/Time Consultation Requested: 10/08/2024
Date/Time Consultation Performed: 10/08/24
Requesting Provider: Dr. Dannie Butler
Performing Provider: Dr Logan Brooks
Reason for Consultation: fever
Chief Complaint / Past History
Chief Complaint
fever, nausea
History of Present Illness
63-year-old female was seen ED yesterday for bilateral flank, back pain, fever. She was diagnosed with 'pyelonephritis' in ED and was discharged home on oral antibiotics(cefdinir). Patient states that after returning home her symptoms worsened
within few hours. She had nausea, vomiting, headaches, worsening of flank pain and back pain. Upon returning to the ER her temperature was 101 F taken orally. She was given 1 g of ceftriaxone in the ED. Abdominal ultrasound shows mild dilation of
common bile duct likely physiological, unchanged from previous ultrasound. Patient denies dysuria, hematochezia, hematuria. She reports of history of pyelonephritis maybe around 30 years ago when she was with her second child.
Past History
Additional Past Medical History:
GERD
HTN
HLD
Anxiety
IBS
Extra-axial 1.[address] July 2016
Class I obesity�BMI 33.6
Additional Past Surgical History:
S/P endometrial ablation for dysfunctional uterine bleeding
Breast biopsy
Tonsillectomy
Allergy History:
diazepam Allergy (Verified 10/07/24 23:38)
dystonic reaction
hydromorphone [From Dilaudid] Allergy (Verified 10/07/24 12:22)
Nausea / Vomiting
latex Allergy (Verified 10/07/24 12:22)
Unknown
propoxyphene Allergy (Verified 10/07/24 23:38)
Unknown
sumatriptan [From Imitrex] Allergy (Verified 10/07/24 12:22)
Rash
tetracycline Allergy (Verified 10/07/24 23:38)
Unknown
Tetracyclines Allergy (Verified 10/07/24 23:38)
Unknown
Medications Reviewed: Yes
Current Antibiotics:
Ceftriaxone
Social History
Tobacco: Non-Smoker
Alcohol: None
Drug: None
Personal:
Living: With Family
Employment: Retired
Family History
Family History: Not Pertinent
Review of Systems
Vital Signs
Temp Pulse Resp BP Pulse Ox
98.5 F 87 16 134/74 96
10/08/24 11:17 10/08/24 11:17 10/08/24 11:17 10/08/24 11:17 10/08/24 13:48
Physical Exam
Physical Exam
Constitutional: No Acute Distress
Head: Normocephalic
Eyes: Pupils Equal and Pupils Round
Cardiovascular: Regular Rate and S1/S2
Pulmonary: Clear
Gastrointestinal: Soft, Non Tender and Non Distended
Genito-Urinary: Negative CVA Tenderness
Skin: Warm and Dry
Neurological: AO x 3
Psychological: Calm
Lab / Diagnostic Study Results
10/08/24 05:23
10/08/24 05:23
Abs Immat Gran (auto) 0.0 10^3/uL (0-0.05) 10/08/24 05:23
Absolute Neuts (auto) 6.1 10^3/uL (1.4-6.5) 10/08/24 05:23
Absolute Lymphs (auto) 0.4 10^3/uL (1.2-3.4) L 10/08/24 05:23
Absolute Monos (auto) 0.5 10^3/uL (0.1-0.6) 10/08/24 05:23
Absolute Basos (auto) 0.0 10^3/uL (0-0.2) 10/08/24 05:23
Immature Gran % 0.6 % (0-0.5) H 10/08/24 05:23
Neutrophils % 86.3 % (42.2-75.2) H 10/08/24 05:23
Lymphocytes % 5.4 % (20.5-51.1) L 10/08/24 05:23
Monocytes % 7.5 % (1.7-9.3) 10/08/24 05:23
Eosinophils % 0.1 % (0-6) 10/08/24 05:23
Basophils % 0.1 % (0-2) 10/08/24 05:23
Lactic Acid Cancelled 10/08/24 03:00
Microbiology Results
Micro:
10/08/24 13:56 C. difficile GDH Antigen & Toxins - Final
Feces/Stool Negative for toxigenic C.difficile
- Pending
Norovirus - POSITIVE
10/08/24 05:23 Blood Culture - Pending
Blood/Venous
10/07/24 21:15 Blood Culture - Pending
Blood/Venous
10/07/24 21:15 Influenza Types A & B (KANDIS) - Final
Nasal Swab Negative for Influenza A & B, NAAT
Negative results must be combined with clinical observations
and patient history.
Nucleic Acid Amplification test (NAAT)performed on the
Motorator platform.
IMAGING
10/08/24- Abdominal US- mild dilation of common bile duct likely physiological, unchanged from previous ultrasound. No masses or stones in kidneys.
Assessment / Plan
Fever
Leukocytosis
-improved/resolved
Norovirus positive
?Pyelonephritis
- Pt without significant symptoms at present
Plan
Patient is afebrile with improved leukocytosis.
Continue ceftriaxone 1 g for today
If she remains clinically stable, will likely discontinue abx in the next 24h
Blood cultures are pending.
Monitor temperature curve and WBC.
--- NOTE | 2024-10-08 17:03 | CM ---
Alert awake oriented patient who lives with her Jamal in a 2 story home with 2 steps to enter and 13 steps to bed/bathroom. She is independent in activates of daily living.She does drive .She uses no adaptive devices.
No VN in past . No SNF hx
Pharmacy [facility]
PCP [facility]
PLAN Home with no needs
[2024-10-08] MEDS: STERILE WATER FOR INJECTION 10 ML IV (17:17)
[2024-10-08] MEDS: ROCEPHIN 1000 MG IV (17:18)
[2024-10-08] MEDS: LOVENOX 40 MG SC (17:19)
[2024-10-09 03:13] VITALS: BP 125/59
[2024-10-09] MEDS: NSS 1000 IV (06:17)
[2024-10-09 07:05] VITALS: BP 135/76
[2024-10-09 07:35] LABS: % Basophils 0.3 % (0-2); % Eosinophils 0.2 % (0-6); % Immature Granulocytes 0.5 % (0-0.5); % Monocytes 11.4 % (1.7-9.3); % Neutrophils 65.6 % (42.2-75.2); Absolute Lymphocytes 1.3 10^3/uL (1.2-3.4); Absolute Monocytes 0.7 10^3/uL (0.1-0.6); Hematocrit 38.5 % (37.0-47.0); Hemoglobin 12.9 g/dL (12.0-16.0); Mean Corp Hgb Conc. 33.5 g/dL (33.0-37.0); Mean Corpuscular Hgb 29.5 pg (27.0-31.0); Mean Corpuscular Volume 87.9 fL (81.0-99.0); Mean Platelet Volume 9.8 fL (7.4-10.4); Nucleated Red Blood Cells % 0 %; Platelet Count 254 10^3/uL (130-400); Red Blood Cell Count 4.38 10^6/uL (4.20-5.40); White Blood Cell Count 6.1 10^3/uL (4.8-10.8)
[2024-10-09 08:00] LABS: ALT (SGPT) 28 U/L (0-35); AST (SGOT) 27 U/L (14-36); Alkaline Phosphatase 69 U/L (38-126); Blood Urea Nitrogen 9 mg/dl (7-17); Calcium 8.2 mg/dl (8.4-10.2); Carbon Dioxide 19 mmol/L (22-30); Chloride 111 mmol/L (98-107); Estimated Creatinine Clearance 99 ml/min; Glucose 73 mg/dl (70-99); Potassium 3.7 mmol/L (3.5-5.1); Sodium 138 mmol/L (135-145); Total Bilirubin 0.4 mg/dl (0.2-1.3); Total Protein 5.1 g/dl (6.3-8.2); eGFR > 60.00
[2024-10-09] MEDS: PROTONIX 40 MG PO (08:00)
[2024-10-09] MEDS: COZAAR 25 MG PO (08:00)
[2024-10-09] MEDS: TOPROL XL 25 MG PO (08:15)
[2024-10-09] MEDS: PROTONIX PO (08:15)
[2024-10-09] MEDS: COZAAR PO (08:16)
--- NOTE | 2024-10-09 11:46 | W.PN.HOSP.TC ---
Today's Communication/Plan
-
dc
Assessment / Plan
Assessment / Plan
Physical Exam
General: Conversant, comfortable, not in distress
HEENT: NormoCephalic, Anicteric, Moist mucous membranes, PERRLA, [place] Conjunctivae and No Ptosis
Respiratory: Clear;
Cardiac: S1/S2 a
GI: Soft, Non Distended, Normal Bowel Sounds, no CV tenderness.
Rectal: No bleeding
Genito-urinary: no hematuria.
Musculoskeletal: No Clubbing, No Cyanosis and No Edema
Skin: Warm and Dry; No Rash or Jaundice
Neuro: AO x 3, Nonfocal/grossly intact.
Psych: Calm
#Sepsis secondary to acute Noro Virus
WBC 13.6 with left shift, lactic acid 2.2,HR 107, 101F, 154/83
She is feeling much better. No more diarrhea or nausea. Tolerating oral diet.
Influenza /COVID negative
Status post IV Rocephin
-Tylenol as needed fever
-As needed Zofran as needed
-Blood cultures x 2
- lactic acid normalized.
Status post IV fluid
- Consulted ID, okay to discharge without antibiotics,
# Headache
Resolved
#GERD
#Primary HTN
BP 157/78
-Continue losartan 25 mg daily, metoprolol succinate 25 mg daily with hold parameters
#HLD
Continue atorvastatin 20 mg every 48 H
#Anxiety
-Continue lorazepam 0.5 mg every 6 hours as needed anxiety
#IBS hx
#Extra-axial 1.[address] July 2016
DVT prophylaxis
-Subcu Lovenox
Total discharge time spent to see the patient, examine the patient, review data and lab results, discuss discharge plan with patient, ID doctor and nursing staff around 65 minutes
Anticipated Discharge: Today
Subjective/Interval History
-
Date of Service: October 09, 2024
She is feeling much better. No more diarrhea. No GI symptoms.
Objective Data
-
Labs:
Laboratory Results
10/09/24
06:55
WBC 6.1
Hgb 12.9
Hct 38.5
Plt Count 254
Sodium 138
Potassium 3.7
Chloride 111 H
Carbon Dioxide 19 L
BUN 9
Creatinine 0.6
Glucose 73
Calcium 8.2 L
Total Bilirubin 0.4
AST 27
ALT 28
Alkaline Phosphatase 69
Vital Signs:
Vital Signs
Temp Pulse Resp BP Pulse Ox
98.3 F 79 18 135/76 99
10/09/24 07:05 10/09/24 07:05 10/09/24 07:05 10/09/24 07:05 10/09/24 07:05
[2024-10-09] MEDS: STERILE WATER FOR INJECTION 10 ML IV (12:19)
[2024-10-09] MEDS: ROCEPHIN 1000 MG IV (12:19)
--- NOTE | 2024-10-09 14:32 | W.DCSUMMARY ---
Discharge Summary
Discharge Data
Date of Admission: 10/07/24
Date of Discharge: 10/09/24
-
Pending Results: No
Hospital Course
63 years old female presented with recurrent abdominal pain and nausea. She was initially treated as urinary tract infection was given antibiotic. Her abdominal pain nausea persisted and she presented again to the emergency room. Patient was
admitted for intravenous antibiotic. She received intravenous fluid. She started to have diarrhea. Stool test came positive for Noro virus infection. Urine and blood culture did not show any growth. She was evaluated by infectious disease
doctor recommended supportive care only. Patient started to feel better. She was able to tolerate oral diet. She did not have fever or leukocytosis. She remained hemodynamically stable and was discharged in a stable condition.
Discharge Plan
-
Patient Disposition: Home (Routine Discharge)
Discharge Diagnosis/Procedures: Noro Virus, take Pepe for nausea if needed.
UTI, urine and blood culture did not show any growth. You received Short course of IV antibiotics, you are seen by ID doctor.
Diet: As tolerated
Referrals:
Kenna Angelo PA-C [Family Provider] -
Prescriptions:
New
ondansetron HCl 4 mg tablet
4 mg PO Q8H PRN (Reason: nausea and vomiting) Qty: 10 0RF
Continued
lorazepam 0.5 MG tablet
0.5 mg PO Q6HPRN PRN (Reason: anxiety) Qty: 12 0RF
ascorbic acid (vitamin C) 1,000 mg Tablet
1,000 mg PO DAILY
losartan 25 mg Tablet
25 mg PO DAILY
metoprolol succinate 25 mg Tablet Extended Release 24 Hr
25 mg PO DAILY
atorvastatin 20 mg Tablet
20 mg PO Q48H
omeprazole 40 mg Capsule,Delayed Release(Dr/Ec)
40 mg PO DAILY
zinc 10 mg Tablet
10 mg PO DAILY
cholecalciferol (vitamin D3) [Vitamin D3] 10 mcg (400 unit) Capsule
10 mcg PO DAILY
Discharge Orders:
Discharge Patient (As Directed); Ordered 10/09/24
Ordered By: Nakia Jacob
Discharge Date and Time
Discharge Date/Time: 10/09/24 13:38
Print Language: BELARUSIAN
== END 2024-10-09 13:38 | disposition home or self-care (01) | DRG 872 ==
LOC: 3 WEST ACU 23:16
PROVIDERS: Clinical Nurse Specialist Family Health; Physician Assistant Medical; ADMITTING PHYSICIAN Internal Medicine; ATTENDING PHYSICIAN Internal Medicine; EMERGENCY PHYSICIAN Emergency Medicine; FAMILY PHYSICIAN Physician Assistant Medical; OTHER PHYSICIAN Student in an Organized Health Care Education/Training Program
DX: A41.9 Sepsis, unspecified organism (principal); N10 Acute pyelonephritis; A08.11 Acute gastroenteropathy due to Norwalk agent; Z11.52 Encounter for screening for COVID-19; R65.20 Severe sepsis without septic shock; I10 Essential (primary) hypertension; K21.9 Gastro-esophageal reflux disease without esophagitis; Z79.899 Other long term (current) drug therapy; F41.9 Anxiety disorder, unspecified; Z86.011 Personal history of benign neoplasm of the brain; E78.00 Pure hypercholesterolemia, unspecified; Z80.0 Family history of malignant neoplasm of digestive organs
CPT/HCPCS: 80053; 83605; 85025; 87040; 87324; 87449; 87502; 87798; 87811; 96361; 96374; 96375; 99285

== ENCOUNTER → 2024-12-12 08:59 | Outpatient (REF) | payer OTHER, SELFPAY | LOC: WDC 08:59 | PROVIDERS: ATTENDING PHYSICIAN Physician Assistant Medical | DX: N63.10 Unspecified lump in the right breast, unspecified quadrant (principal) | CPT/HCPCS: 76642; 77062; 77066 ==

== ENCOUNTER 2025-02-16 12:52 | Emergency (ER) | payer OTHER, SELFPAY ==
[2025-02-16 12:54] VITALS: BP 158/85
[2025-02-16 13:26] LABS: Hematocrit 43.7 % (37.0-47.0); Hemoglobin 15.0 g/dL (12.0-16.0); Mean Corp Hgb Conc. 34.3 g/dL (33.0-37.0); Mean Corpuscular Volume 86.7 fL (81.0-99.0); Nucleated Red Blood Cells % 0 %; Platelet Count 246 10^3/uL (130-400); Red Cell Dist. Width 11.9 % (11.5-14.5)
[2025-02-16 13:40] LABS: ALT (SGPT) 38 U/L (0-35); AST (SGOT) 28 U/L (14-36); Albumin 5.0 g/dl (3.5-5.0); Alkaline Phosphatase 99 U/L (38-126); Blood Urea Nitrogen 24 mg/dl (7-17); Calcium 10.0 mg/dl (8.4-10.2); Carbon Dioxide 25 mmol/L (22-30); Chloride 108 mmol/L (98-107); Glucose 97 mg/dl (70-99); Potassium 4.2 mmol/L (3.5-5.1); Sodium 141 mmol/L (135-145); Total Protein 7.7 g/dl (6.3-8.2); eGFR > 60.00
[2025-02-16 13:51] LABS: Troponin I < 0.012 ng/ml
[2025-02-16 19:14] LABS: Troponin I < 0.012 ng/ml
--- NOTE | 2025-02-16 19:15 | ED.GENMED ---
History of Present Illness
General
Chief Complaint: Cardiac Symptoms
Time Seen by Provider: 02/16/25 17:17
History of Present Illness
History of Present Illness:
64-year-old female with history of hypertension and hyperlipidemia presents to the emergency department for evaluation of chest pressure and left arm pain beginning at 11 AM today. She notes that she has significant anxiety in her life currently
and feels that she should have taken Ativan before coming in. She denies any pleuritic or radiating nature to the pain. No palliating or provoking factors. No fevers or chills recently. No prior history of diagnosed coronary artery disease
Past History
Past History
ED Past Medical History: GERD, HTN, Hypercholesterolemia, Psychiatric (Anxiety), Other (IBS) and Other (Extra-axial 1.7 cm Meningioma noted on CAT scan July 2016)
ED Past Surgical History: Tonsilectomy and Other (tubal ligation, uterine ablation; breast biopsy)
Social History
Tobacco: Non-smoker
Alcohol: Occasional
Drug: None
Personal:
Living: with family
Employment: Employed
Family History
Family History: Other (Noncontributory)
Review of Systems
Review of Systems
Allergies reviewed?: Yes
All Other Systems: ROS reviewed and negative except as documented in HPI and ROS
Phy Exam
Physical Exam
Physical Exam:
GEN: Well appearing, NAD, WDWN
HEENT: Oral mucosa moist, no scleral icterus
Cardiac: Regular rate and rhythm, no murmurs
Lung: No respiratory distress, no tachypnea, lungs clear to auscultation bilaterally
MSK: No gross deformity or injuries
Skin: Good color, no pallor or jaundice, no rashes
Neuro: AO x3, moves all extremities freely
Psych: Calm, cooperative
Course
Orders/Labs/Results
Orders:
Orders
02/16/25 12:53
ECG [Electrocardiogram (*1)] Urgent
Reason for Study: Chest Pain
EKG- Treatment ONCE
02/16/25 13:18
Complete Blood Count/With Diff Urgent
Comprehensive Metabolic Panel Urgent
Troponin I Urgent
02/16/25 18:05
Troponin I Urgent
Abnormal Lab Results
02/16/25
13:18
Abs Immat Gran (auto) 0.1 H 10^3/uL
(0-0.05)
Absolute Monos (auto) 0.7 H 10^3/uL
(0.1-0.6)
Chloride 108 H mmol/L
(98-107)
BUN 24 H mg/dl
(7-17)
ALT 38 H U/L
(0-35)
02/16/25 13:18
02/16/25 13:18
Vital Signs
Initial and Last Documented VS:
Initial Vital Signs
Temp Pulse Resp BP Pulse Ox
98.0 F 81 16 158/85 98
02/16/25 12:54 02/16/25 12:54 02/16/25 12:54 02/16/25 12:54 02/16/25 12:54
Last Documented Vital Signs
Temp Pulse Resp BP Pulse Ox
98.0 F 81 16 158/85 98
02/16/25 12:54 02/16/25 12:54 02/16/25 12:54 02/16/25 12:54 02/16/25 19:17
MDM/Problems Addressed
MDM/Problems Addressed:
Patient's initial and delta troponin were unremarkable, EKG is nonischemic. Low clinical suspicion for acute coronary syndrome rather suspect this may be a psychosomatic complaint. She is suitable for outpatient primary care follow-up
Comment
Comment:
EKG independently interpreted by me shows normal sinus rhythm at a rate of [address] changes concerning for ischemia, motion artifact in V3
*Pulse Oximetry
SaO2: 98
Oxygen Mode of Delivery: Room air
Patient hypoxic: no
*Critical Care Note
Total Time (30-74mins, 75-104mins- exclusive of procedures): Not Applicable
ED Attending Note
-
Portions of this chart may have been created with voice recognition software.� Occasional wrong word or��sound alike� substitutions may have occurred due to the inherent limitations of voice recognition software.
Discharge Plan
Departure
Patient Disposition: Home (Routine Discharge)
Date of Disposition: 02/16/25
Time of Disposition: 19:24
Patient with high blood pressure during this ER visit?: No
Discharge Problem:
Atypical chest pain
Instructions: Chest Pain (DC)
Prescriptions:
No Action
lorazepam 0.5 MG tablet
0.5 mg PO Q6HPRN PRN (Reason: anxiety) Qty: 12 0RF
ascorbic acid (vitamin C) 1,000 mg Tablet
1,000 mg PO DAILY
losartan 25 mg Tablet
25 mg PO DAILY
metoprolol succinate 25 mg Tablet Extended Release 24 Hr
25 mg PO DAILY
atorvastatin 20 mg Tablet
20 mg PO Q48H
omeprazole 40 mg Capsule,Delayed Release(Dr/Ec)
40 mg PO DAILY
zinc 10 mg Tablet
10 mg PO DAILY
cholecalciferol (vitamin D3) [Vitamin D3] 10 mcg (400 unit) Capsule
10 mcg PO DAILY
ondansetron HCl 4 mg tablet
4 mg PO Q8H PRN (Reason: nausea and vomiting) Qty: 10 0RF
Referrals:
Kenna Angelo PA-C [Family Provider, Family Practice]
Interventions
Interventions:
*Risk Screen - Suicide Last Done: 02/16/25 12:54
*General Assessment Last Done: 02/16/25 19:34
*Neglect/Abuse Screening Last Done: 02/16/25 12:54
*ED- Fall Risk Assessment Last Done: 02/16/25 19:34
*Nursing Disposition Last Done: 02/16/25 19:34
ED- Pulmonary Assessment Last Done: 02/16/25 19:33
ED- Cardiac Assessment Last Done: 02/16/25 19:32
Discharge Date and Time
Discharge Date/Time: 02/16/25 19:36
Print Language: UKRAINIAN
== END 2025-02-16 19:36 | disposition home or self-care (01) ==
LOC: EMR 12:52
PROVIDERS: Emergency Medicine; Physician Assistant; EMERGENCY PHYSICIAN Emergency Medicine; FAMILY PHYSICIAN Physician Assistant Medical
DX: R07.89 Other chest pain (principal); I10 Essential (primary) hypertension; E78.5 Hyperlipidemia, unspecified; E78.00 Pure hypercholesterolemia, unspecified; F41.9 Anxiety disorder, unspecified
CPT/HCPCS: 99284; 80053; 84484; 85025; 93005

== ENCOUNTER → 2025-03-20 08:17 | Outpatient (REF) | payer OTHER, SELFPAY | LOC: HWRCS 08:17 | PROVIDERS: ATTENDING PHYSICIAN Physician Assistant Medical; FAMILY PHYSICIAN Physician Assistant Medical | DX: I35.1 Nonrheumatic aortic (valve) insufficiency (principal) | CPT/HCPCS: 93306 ==

== ENCOUNTER → 2025-03-31 07:17 | Outpatient (REF) | payer OTHER, SELFPAY ==
[2025-03-31 10:19] LABS: ALT (SGPT) 37 U/L (0-35); AST (SGOT) 29 U/L (14-36); Albumin 4.7 g/dl (3.5-5.0); Alkaline Phosphatase 100 U/L (38-126); Blood Urea Nitrogen 17 mg/dl (7-17); Calcium 9.6 mg/dl (8.4-10.2); Carbon Dioxide 22 mmol/L (22-30); Chloride 110 mmol/L (98-107); Glucose 92 mg/dl (70-99); HDL Cholesterol 43 mg/dl; LDL Cholesterol, Calculated 78 mg/dl; Potassium 4.7 mmol/L (3.5-5.1); Sodium 141 mmol/L (135-145); Total Protein 7.0 g/dl (6.3-8.2); Very Low Density Lipoprotein 19 mg/dl (0-30); eGFR > 60.00
== END ==
LOC: REG 07:17
PROVIDERS: ATTENDING PHYSICIAN Physician Assistant Medical
DX: E66.811 Obesity, class 1 (principal); I10 Essential (primary) hypertension; E78.00 Pure hypercholesterolemia, unspecified
CPT/HCPCS: 36415; 80053; 80061; 84443

== ENCOUNTER 2025-05-28 06:26 | Day surgery (SDC) | payer OTHER, SELFPAY | END 2025-05-28 13:47 | disposition home or self-care (01) | LOC: GI 06:26 | PROVIDERS: ATTENDING PHYSICIAN Internal Medicine Gastroenterology | DX: Z12.11 Encounter for screening for malignant neoplasm of colon (principal); K57.30 Diverticulosis of large intestine without perforation or abscess without bleeding; K64.9 Unspecified hemorrhoids; D12.5 Benign neoplasm of sigmoid colon; K63.5 Polyp of colon | CPT/HCPCS: 45380; 88305 ==